=== PATIENT | female | born 1960 | race Caucasian/White ===

== ENCOUNTER 2025-04-21 00:31 | Inpatient (IN) | payer MEDICAID, OTHER ==
[~2025-04-21] VITALS: Ht 172.7 cm; Wt 79.7 kg
--- NOTE | 2025-04-21 01:16 | ED.PDOC ---
GI ASSESSMENT HPI Comments 64 year old female came to ER due to rectal pain. Patient has been having episodes of rectal prolapse since 2004. No surgical intervention has ever been done. Patient has been able to reduce the prolapse with relative ease before until 3 days ago, she had another episode of rectal prolapse however it is irreducible at this time. Patient went to [facility] for help however despite several attempts by the ER doctor, the prolapse remained irreducible. REVIEW OF SYSTEMS: General: No fever, no chills, or fatigue HEENT: No sore throat, no earache, no congestion, no neck pain. Cardiac: No chest pain. No palpitations. Lungs: No shortness of breath, no cough. GI: No nausea, no vomiting, no diarrhea, no constipation, no abdominal pain, (+) rectal pain : No dysuria, frequency, or urgency. No hematuria. Musculoskeletal: No joint pain , no joint swelling, no extremity edema. Skin: No rash, no itching. Neuro: No headache, no dizziness, no weakness PHYSICAL EXAM: General: Awake, alert and oriented. No acute distress. Skin: Skin in warm, dry and intact without rashes or lesions. HEENT: The head is normocephalic and atraumatic. Conjunctivae are clear without exudates or hemorrhage. Sclera is non-icteric. Neck: Normal range of motion. No JVD. Cardiac: Regular rate Respiratory: No signs of respiratory distress. No Stridor. : Large erythematous rectal prolapse, tender to palpation, nonreducible Neurological: The patient is awake, alert and oriented to person, place, and time with normal speech. Speech is clear. There is no facial asymmetry. Psychiatric: Appropriate mood and affect. Good judgement and insight. Chief Complaint: Abdominal Pain Time Seen by MD: 01:15 Reviewed Notes: Nurses Notes Allergies: Coded Allergies: NO KNOWN ALLERGIES (Unverified , 04/21/25) Information Source: Patient Mode of Arrival: EMS Past Medical History PAST MEDICAL HISTORY: Anemia Surgical History: Denies all surgeries CMM TECHNICIAN History: Denies all CMM TECHNICIAN Hx Family History Family History: Reviewed,noncontributory to illness Social History Smoker: Non-Smoker Alcohol: Denies ETOH Use Drugs: Denies Drug Use Lives In: Home Was a procedure done? Was a procedure done?: No GI differential Dx Differential Diagnosis: Diverticular disease, Inflammatory BD, Ischemic Bowel, Anemia, Other (rectal prolapse) X-Ray, Labs, Meds, VS Vital Signs Date Time Temp Pulse Resp B/P (MAP) Pulse Ox O2 Delivery O2 Flow Rate FiO2 04/21/25 00:35 99.2 90 16 172/87 95 99.2 04/21/25 00:33 99.2 82 16 117/65 (82) 95 99.2 Time of 1ST Reevaluation: 01:16 Reevaluation 1ST: Unchanged Patient Education/Counseling: Need For Follow Up Family Education/Counseling: No Family Present SEPSIS Sepsis Screen Date sepsis recognized/suspect: Apr 21, 2025 Time Sepsis recognized/suspect: 0035 Recent Procedure: No On Antibiotic Therapy: No Respiratory Rate >20: No Heart Rate >90: No Temp<36 C (96.8 F) or >38.3 C: No SBP <90 or MAP <65 mmHG: No New Acute Mental Status Change: No Is the patient on CPAP, BIPAP,: No Vital Signs Date Time Temp Pulse Resp B/P (MAP) Pulse Ox O2 Delivery O2 Flow Rate FiO2 04/21/25 00:35 99.2 90 16 172/87 95 99.2 04/21/25 00:33 99.2 82 16 117/65 (82) 95 99.2 Departure 1 Departure Time of Disposition: 01:52 Impression: Primary Impression: Rectal prolapse Disposition: ADMITTED INPATIENT Condition: Stable Critical Care Note Critical Care Time?: No Stability Stability form required: No I personally scribed for DEVEN NEAL MD ([email or web address]) on 04/21/25 at 01:16. Electronically submitted by Giovani Smith ([email or web address]). DEVEN NEAL MD Apr 21, 2025 01:16
[2025-04-21 02:30] LABS: Hematocrit 31.3 % (36.0-46.0); Hemoglobin 10.6 g/dL (12.2-16.2); Mean Corpuscular Hemoglobin 28.7 pg (28.0-32.0); Mean Corpuscular Volume 85.0 fL (80.0-100.0); Nucleated Red Blood Cells % 0.1 %
[2025-04-21 02:35] LABS: Chloride 100 mmol/L (98-107); Potassium 4.5 mmol/L (3.5-5.1)
[2025-04-21 02:36] LABS: Anion Gap 8 (5-15); Carbon Dioxide 23 mmol/L (20-31)
[2025-04-21 02:37] LABS: Calcium 9.8 mg/dL (8.7-10.4)
[2025-04-21 02:41] LABS: BUN/Creatinine Ratio 13.5 (10.0-20.0); Blood Urea Nitrogen 14 mg/dL (9-23); Glucose 90 mg/dL (74-106)
[2025-04-21 02:43] LABS: Sodium 131 mmol/L (136-145)
[2025-04-21] MEDS ORDERED: ONDANSETRON HCL 4 MG/2 ML VIAL IV PRN (03:15)
[2025-04-21] MEDS: SODIUM CHLORIDE 0.9% 1,000 ML IV ONE (03:15)
[2025-04-21 03:57] LABS: Alanine Aminotransferase 14.0 U/L (7-40); Bilirubin, Direct 0.3 mg/dL (<0.3)
[2025-04-21 03:58] LABS: Bilirubin, Total 0.5 mg/dL (0.2-1.0)
[2025-04-21 04:00] LABS: Albumin 3.0 g/dL (3.2-4.8); Alkaline Phosphatase 131.0 U/L (46-116); Total Protein 5.6 g/dL (5.7-8.2)
[2025-04-21] MEDS: HYDROmorphone HCL 2 MG/ML VL/or syr IV ONE (04:02)
[2025-04-21] MEDS: PANTOPRAZOLE 40 MG/10 ML VIAL INJ IV ONE (04:08)
--- NOTE | 2025-04-21 04:17 | DVH ---
CHEST RADIOGRAPH Indication: sob Technique: Single frontal view of the chest was obtained COMPARISON: CHEST TWO VIEWS on DOS: 09/05/19 FINDINGS: Lines and Tubes: None Lungs: Clear. Soft tissue density shadow and breast prosthesis overlies the right middle lung zone. Pleura: No effusion. No pneumothorax. Cardiomediastinal contours: Unremarkable Bones: Unremarkable IMPRESSION: 1. No radiographic evidence of acute cardiopulmonary abnormality.
--- NOTE | 2025-04-21 04:26 | DVH ---
Exam: CT CT AB PEL WO CON-NO ORAL OR IV History: eval for obstruction Comparison Study: None Technique: Multidetector spiral CT of the abdomen and pelvis was performed from lung bases to pubic s ymphysis. Imaging was performed without intravenous contrast. Coronal and sagittal multiplanar reform ats were obtained from the axial data set by the technologist. Radiation Dose : 1. Abdomen/Pelvis: CTDIvol 11.17 mGy, DLP 717.4 mGy*cm. Findings: Evaluation of vasculature and solid organs is limited due to lack of intravenous contrast use. Lung Bases: Lung bases are clear. Visualized portions of the heart and pericardium are unremarkable. Liver: The liver is normal in size. No focal lesions. Gallbladder and Biliary Tree: The gallbladder is unremarkable No intrahepatic or extrahepatic biliar y ductal dilatation. Spleen: Unremarkable Pancreas: The pancreas is grossly unremarkable. Adrenal Glands: Unremarkable Kidneys: Kidneys are unremarkable without calculi or hydronephrosis. GI tract: The stomach is grossly normal in appearance. No evidence of small bowel wall thickening or abnormal dilatation to suggest bowel obstruction. There is marked distention of the colon with stool. For example the cecum measures 10.3 cm. Marked fecal retention in the rectum measuring 7.3 cm with m ucosal thickening of the rectum, pericolonic fluid and fat stranding. There is upstream dilatation of the entire colon. The appendix is not visualized. Peritoneum/mesentery/retroperitoneum. No evidence of free intraperitoneal air. No ascites. No evidenc e of suspicious lymphadenopathy. Abdominal Wall: Bilateral calcified breast implants with suspected rupture of the right implant. Vasculature: The visualized abdominal aorta is normal in size and caliber. Evaluation of abdominal a nd pelvic vessels is limited due to lack of intravenous contrast. Urinary Bladder: Grossly unremarkable for degree of distention. Pelvic Organs: Unremarkable Musculoskeletal: No aggressive focal bony lesions, acute fractures or dislocation. IMPRESSION: 1. Marked fecal retention with inflammatory changes in the rectum compatible with stercoral colitis w ith colonic obstruction. 2. Suspect possible right breast implant rupture. Correlation with dedicated breast imaging recommen ded if clinically warranted.
--- NOTE | 2025-04-21 04:29 | DVHHPRES ---
History of Present Illness Resident Creating Document: CORY JULIEN RESIDENT History of Present Illness This is a 64-year-old female with past medical history of rectal prolapse which she has been able to reduce for 20 years, fibromyalgia not on any medication, bipolar disorder stable since 2005, hysterectomy, breast augmentation, who came from [facility] on 04/20/25 with complaints of being unable to push back her rectal prolapse for 3 days, rectal bleeding since 3 days and constipation for 19 days. As per the patient, she went to [facility] 2 days ago via ambulance when she saw blood-tinged fluid from the prolapse site and she was unable to reduce the prolapse back in. In the hospital they attempted to reduce it twice in the past 2 days and she was only able to hold it for a while, but she was only able to hold it in for 30 minutes before it came out again. She says the bleeding increased after the doctors there tried to reduce the prolapse each time. She reports for the past 19 days she has taken various stool softeners and Fleet enema which has not helped passed gas or stool. She is able to tolerate a diet but eats less knowing it will cause her more abdominal pain which she has started to feel as she is unable to pass flatus or stool. Past medical history: As above Past surgical history: As above Social history: Patient denies smoking, drinks alcohol 1 to 2 times a year and smokes marijuana once a month for fibromyalgia family history: Reviewed and noncontributory to the management of this case Home medications: Seroquel 200 mg q.i.d., lamotrigine 200 mg b.i.d. Primary care physician: Dr. Bernard and [facility] allergies: None code status: Full code Review of Systems Constitutional: No: Fever, Chills, Sweats, Weakness, Malaise, Other Eyes: No: Pain, Vision change, Conjunctivae inflammation, Eyelid inflammation, Other, Redness ENT: No: Ear pain, Ear discharge, Nose pain, Nose discharge, Nose congestion, Mouth pain, Mouth swelling, Throat pain, Throat swelling, Other Respiratory: No: Cough, Dry, Shortness of breath, SOB with excertion, Wheezing, Hemoptysis, Pleuritic Pain, Sputum, Wheezing, Other Cardiovascular: No: Chest Pain, Palpitations, Orthopnea, Paroxysmal Noc. Dyspnea, Edema, Lt Headedness, Other Gastrointestinal: Abdominal Pain; No: Nausea, Vomiting, Diarrhea, Constipation, Melena, Hematochezia, Other Genitourinary: Other (Rectal prolapse) Musculoskeletal: No: other, neck pain, shoulder pain, arm pain, back pain, hand pain, leg pain, foot pain Skin: No: Rash, Lesions, Jaundice, Bruising, Other Neurological: No: Weakness, Numbness, Incoordination, Change in speech, Confusion, Seizures, Other Allergies: Coded Allergies: NO KNOWN ALLERGIES (Unverified , 04/21/25) Medications Current Medications Medications Dose Ordered Sig/Sharri Route Start Time Stop Time Status Last Admin Dose Admin Ondansetron HCl 4 mg Q4HP PRN IV 04/21/25 03:15 Quetiapine Fumarate 200 mg Q8HR PO 04/21/25 06:00 Lamotrigine 200 mg Q12HR PO 04/21/25 10:00 Pantoprazole Sodium 40 mg DAILY IV 04/22/25 10:00 Hydromorphone HCl 0.5 mg Q4HPRN PRN IV 04/21/25 03:15 Exam Vital Signs Vital Signs Date Time Temp Pulse Resp B/P (MAP) Pulse Ox O2 Delivery O2 Flow Rate FiO2 04/21/25 04:02 87 20 141/91 04/21/25 00:35 99.2 95 99.2 04/21/25 00:33 Room Air* 0 21 Exam General Appearance: Alert, Oriented X3, Cooperative, Not in acute distress HEENT: Atraumatic, Mucous membranes moist/pink Respiratory: Clear to auscultation, Normal air movement, No added sounds Cardiovascular: Regular rate, Normal S1, Normal S2, No murmurs Abdominal: Active bowel sounds, Soft, no distention, no tenderness Extremities: No edema, Normal pulses, No tenderness/swelling Skin: No Significant rash, except past surgical scars Neuro: Normal speech, sensorimotor deficits none Psych/Mental Status: Mental status NL, Mood NL Rectal: Presence of red, intestinal looking mass the size of a golf ball, dripping blood, extremely tender on touch Patient is in severe pain, LEAH refused, disimpaction not possible, patient does not want rectal enema either, awaiting surgeon Nurse was there as it communications specialist during examination Labs/Xrays Labs Test 04/21/25 02:14 Range/Units White Blood Count 7.8 4.4-10.8 10^3/uL Red Blood Count 3.68 L 4.0-5.20 10^6/uL Hemoglobin 10.6 L 12.2-16.2 g/dL Hematocrit 31.3 L 36.0-46.0 % Mean Corpuscular Volume 85.0 80.0-100.0 fL Mean Corpuscular Hemoglobin 28.7 28.0-32.0 pg Mean Corpuscular Hemoglobin Concent 33.7 32.0-36.0 g/dL Red Cell Distribution Width 14.2 11.8-14.3 % Platelet Count 407 140-450 10^3/uL Mean Platelet Volume 6.7 L 6.9-10.8 fL Neutrophils (%) (Auto) 78.2 37.0-80.0 % Lymphocytes (%) (Auto) 10.9 10.0-50.0 % Monocytes (%) (Auto) 10.8 0.0-12.0 % Eosinophils (%) (Auto) 0.0 0.0-7.0 % Basophils (%) (Auto) 0.1 0.0-2.0 % Neutrophils # (Auto) 6.1 1.6-8.6 10 ^3/uL Lymphocytes # (Auto) 0.9 0.4-5.4 10 ^3/uL Monocytes # (Auto) 0.8 0-1.3 10 ^3/uL Eosinophils # (Auto) 0 0-0.8 10 ^3/uL Basophils # (Auto) 0 0-0.2 10 ^3/uL Nucleated Red Blood Cells 0.1 % Sodium Level 131 L 136-145 mmol/L Potassium Level 4.5 3.5-5.1 mmol/L Chloride Level 100 98-107 mmol/L Carbon Dioxide Level 23 20-31 mmol/L Anion Gap 8 5-15 Blood Urea Nitrogen 14 9-23 mg/dL Creatinine 1.04 H 0.550-1.02 mg/dL Glomerular Filtration Rate Calc 61 >90 mL/min BUN/Creatinine Ratio 13.5 10.0-20.0 Serum Glucose 90 74-106 mg/dL Calcium Level 9.8 8.7-10.4 mg/dL Total Bilirubin 0.5 0.2-1.0 mg/dL Direct Bilirubin 0.3 <0.3 mg/dL Aspartate Amino Transferase (AST) 20 13-40 U/L Alanine Aminotransferase (ALT) 14 7-40 U/L Alkaline Phosphatase 131 H 46-116 U/L Total Protein 5.6 L 5.7-8.2 g/dL Albumin 3.0 L 3.2-4.8 g/dL SEPSIS Sepsis Screen Date sepsis recognized/suspect: Apr 21, 2025 Time Sepsis recognized/suspect: 34 Recent Procedure: No On Antibiotic Therapy: No Respiratory Rate >20: No Heart Rate >90: No Temp<36 C (96.8 F) or >38.3 C: No SBP <90 or MAP <65 mmHG: No New Acute Mental Status Change: No Is the patient on CPAP, BIPAP,: No Physician Orders * Surgical Consult (04/21/25 ) Admit (04/21/25 03:01) Code Status (04/21/25 03:01) Ondansetron Hcl (Zofran) (04/21/25 03:15) Complete Blood Count (04/21/25 04:00) Comprehensive Metabolic Panel (04/21/25 04:00) Npo (Nothing By Mouth) Diet (04/21/25 Breakfast) Condition: Unstable (04/21/25 03:01) Notify Md Of Changes From Base (04/21/25 03:01) Quetiapine Fumarate Tablet (Seroquel Tab (04/21/25 06:00) Lamotrigine Tablet (Lamictal Tablet) (04/21/25 10:00) Type And Screen (04/21/25 03:01) Hydromorphone Injection (Dilaudid Inject (04/21/25 03:15) Ct Ab Pel Wo Con-No Oral Or Iv (04/21/25 03:01) Sodium Chloride 0.9% (04/21/25 03:15) Chest Xray 1 View (04/21/25 03:01) Pantoprazole (Protonix) (04/22/25 10:00) PTPTT (04/21/25 04:04) Iron Panel (04/21/25 04:04) Ferritin (04/21/25 04:04) Vitamin B12 (04/21/25 04:04) Folate (Folic Acid) (04/21/25 04:04) Vital Signs Date Time Temp Pulse Resp B/P (MAP) Pulse Ox O2 Delivery O2 Flow Rate FiO2 04/21/25 04:02 87 20 141/91 04/21/25 00:35 99.2 90 16 172/87 95 99.2 04/21/25 00:33 99.2 82 16 117/65 (82) 95 99.2 04/21/25 00:33 Room Air* 0 21 Laboratory Tests Test 04/21/25 02:14 White Blood Count 7.8 10^3/uL (4.4-10.8) Medications Medications Dose Ordered Sig/Sharri Route Start Time Stop Time Status Last Admin Dose Admin Hydromorphone HCl 0.5 mg ONCE ONCE IV 04/21/25 03:15 04/21/25 03:19 DC 04/21/25 04:02 0.5 MG Pantoprazole Sodium 40 mg ONCE ONCE IV 04/21/25 03:15 04/21/25 03:19 DC 04/21/25 04:08 40 MG Sodium Chloride 1,000 ml @ 100 mls/hr Q10H ONCE IV 04/21/25 03:15 04/21/25 13:14 04/21/25 03:15 100 MLS/HR Assessment/Plan Assessment/Plan #Rectal prolapse #hematochezia due to above #normocytic normochromic anemia # stercoral colitis with colonic obstruction -Surgery consult placed -Ondansetron 4 mg IV q.4 PRN -NPO -Hydromorphone 0.5 mg IV once And q.4 PRN -IV fluids in his 0.9% -pantoprazole 40 mg IV daily scheduled - PT 11.8, INR 1.13, APTT 40.4 - B12 547, folic acid 8.2 2 -Iron 15, TIBC 186, percent saturation 8.1 -Iron sucrose complex IV daily for 5 days -CT abdomen and pelvis without contrast , shows Marked fecal retention with inflammatory changes in the rectum compatible with stercoral colitis with colonic obstruction. -lactulose 30 mL p.o. once #Bipolar disorder, stable -UTI pt 200 mg p.o. Q 8 scheduled -Lamotrigine 200 mg p.o. q.12 scheduled #history of fibromyalgia -Pain management as above -outpatient follow up #Suspect possible right breast implant rupture -as seen in CT abdomen and pelvis, incidental finding -outpatient follow up GI prophylaxis: Protonix 40 mg IV daily scheduled DVT prophylaxis: held due to bleeding Diet: NPO Goals of care discussed with the patient for more than 27 minutes: Full code status Case discussed with Dr. Martins, patient and nurse. Plan discussed with: Patient My Orders Orders - CORY JULIEN Procedure Category Date Status Time Admit ADMIT 04/21/25 Transmitted 03:01 Code Status CODE 04/21/25 Transmitted 03:01 Ondansetron Hcl PHA 04/21/25 In Process (Zofran) 03:15 Complete Blood Count LAB 04/21/25 Logged 04:00 Comprehensive LAB 04/21/25 Logged Metabolic Panel 04:00 Npo (Nothing By DIET 04/21/25 Transmitted Mouth) Diet Breakfast Condition: Unstable AJIT 04/21/25 In Process 03:01 Notify Of Changes AJIT 04/21/25 In Process From Base 03:01 Quetiapine Fumarate PHA 04/21/25 In Process Tablet (Seroquel Tab 06:00 Lamotrigine Tablet PHA 04/21/25 In Process (Lamictal Tablet) 10:00 Type And Screen BBK 04/21/25 In Process 03:01 Hydromorphone PHA 04/21/25 In Process Injection (Dilaudid 03:15 Ct Ab Pel Wo Con-No CT 04/21/25 Resulted Oral Or Iv 03:01 Sodium Chloride 0.9% PHA 04/21/25 In Process 03:15 Chest Xray 1 View XY 04/21/25 Resulted 03:01 Pantoprazole PHA 04/22/25 In Process (Protonix) 10:00 PTPTT LAB 04/21/25 In Process 04:04 Iron Panel LAB 04/21/25 In Process 04:04 Ferritin LAB 04/21/25 In Process 04:04 Vitamin B12 LAB 04/21/25 In Process 04:04 Folate (Folic Acid) LAB 04/21/25 In Process 04:04 Date of Service: Apr 21, 2025 Billing Provider: RIMA MARTINS MD Common Visit Codes: [id number] INP/OBS CARE (HIGH) CORY JULIEN RESIDENT Apr 21, 2025 04:29 RIMA MARTINS MD Apr 26, 2025 11:56
[2025-04-21 04:35] LABS: INR 1.13 (0.9-1.15); Partial Thromboplastin Time 40.4 SEC (24.5-34.5); Prothrombin Time 11.8 sec (9.3-11.8)
[2025-04-21 04:51] LABS: Iron 15.0 ug/dL (50-170); Total Iron Binding Capacity 186.0 ug/dL (250-425)
[2025-04-21 05:04] LABS: Ferritin 183.2 ng/mL (10-291)
[2025-04-21] MEDS: LACTULOSE 20Gm/30ML SOLN PO ONE (06:00)
[2025-04-21 08:00] VITALS: PULSE 91; RESP 15; O2SAT 98
[2025-04-21 08:49] LABS: Hemoglobin 11.2 g/dL (12.2-16.2); Mean Corpuscular Hemoglobin 28.9 pg (28.0-32.0); Nucleated Red Blood Cells % 0.0 %
[2025-04-21 08:51] LABS: Hematocrit 33.3 % (36.0-46.0); Mean Corpuscular Volume 85.7 fL (80.0-100.0)
[2025-04-21 08:56] LABS: Chloride 98 mmol/L (98-107); Potassium 4.6 mmol/L (3.5-5.1)
[2025-04-21 08:57] LABS: Anion Gap 9 (5-15); Calcium 10.1 mg/dL (8.7-10.4); Carbon Dioxide 25 mmol/L (20-31)
[2025-04-21 08:59] LABS: Sodium 132 mmol/L (136-145)
[2025-04-21 09:02] LABS: BUN/Creatinine Ratio 11.8 (10.0-20.0); Blood Urea Nitrogen 13 mg/dL (9-23); Glucose 92 mg/dL (74-106)
[2025-04-21 09:03] LABS: Magnesium 1.9 mg/dL (1.6-2.6)
--- NOTE | 2025-04-21 09:42 | DVHINCON2 ---
Date of service: Apr 21, 2025 History of Present Illness 64-year-old female with a long history of rectal prolapse for the past 20 years who has been unable to reduce it for the past three days and also causing c onstipation. Patient also reports some bleeding from the area. Past Medical History Fibromyalgia. Bipolar disorder. Past Surgical History Breast augmentation. Hysterectomy. Family History Noncontributory Social History Rare alcohol. Denies tobacco. Marijuana once a month for fibromyalgia. Allergies: Coded Allergies: NO KNOWN ALLERGIES (Unverified , 04/21/25) Current Medications Current Medications Medications (Trade) Dose Ordered Sig/Sharri Route PRN Reason Start Time Stop Time Status Last Admin Ondansetron HCl (Zofran) 4 mg Q4HP PRN IV NAUSEA / VOMITING 04/21/25 03:15 Quetiapine Fumarate (SEROquel TABLET) 200 mg Q8HR PO 04/21/25 06:00 Lamotrigine (LaMICtal TABLET) 200 mg Q12HR PO 04/21/25 10:00 Pantoprazole Sodium (Protonix) 40 mg DAILY IV 04/22/25 10:00 Hydromorphone HCl (Dilaudid Injection) 0.5 mg Q4HPRN PRN IV MODERATE PAIN (4-6 PAIN SCALE) 04/21/25 03:15 Iron Sucrose 110 ml @ 110 mls/hr DAILY@1200 IV 04/21/25 12:00 04/25/25 12:59 Vital Signs Vital Signs Date Time Temp Pulse Resp B/P (MAP) Pulse Ox O2 Delivery O2 Flow Rate FiO2 04/21/25 06:00 90 18 126/79 (95) 96 04/21/25 00:35 99.2 99.2 04/21/25 00:33 Room Air* 0 21 Physical Exam GEN: Age-appropriate female in no acute distress. Alert. HEENT: Normocephalic atraumatic. Moist mucous membranes. Anicteric sclerae. CV: RRR Respiratory: CTAB ABD: Soft. Minimal distention. Rectal: Prolapsed rectum size of an large orange with inflamed mucosa and significant edema. No active bleeding. Unable to be reduced. Labs/Diagnostic Data Labs Test 04/21/25 08:27 04/21/25 02:14 Range/Units White Blood Count 8.6 4.4-10.8 10^3/uL Red Blood Count 3.89 L 4.0-5.20 10^6/uL Hemoglobin 11.2 L 12.2-16.2 g/dL Hematocrit 33.3 L 36.0-46.0 % Mean Corpuscular Volume 85.7 80.0-100.0 fL Mean Corpuscular Hemoglobin 28.9 28.0-32.0 pg Mean Corpuscular Hemoglobin Concent 33.7 32.0-36.0 g/dL Red Cell Distribution Width 14.2 11.8-14.3 % Platelet Count 453 H 140-450 10^3/uL Mean Platelet Volume 6.9 6.9-10.8 fL Neutrophils (%) (Auto) 81.5 H 37.0-80.0 % Lymphocytes (%) (Auto) 8.3 L 10.0-50.0 % Monocytes (%) (Auto) 10.1 0.0-12.0 % Eosinophils (%) (Auto) 0.0 0.0-7.0 % Basophils (%) (Auto) 0.1 0.0-2.0 % Neutrophils # (Auto) 7.0 1.6-8.6 10 ^3/uL Lymphocytes # (Auto) 0.7 0.4-5.4 10 ^3/uL Monocytes # (Auto) 0.9 0-1.3 10 ^3/uL Eosinophils # (Auto) 0 0-0.8 10 ^3/uL Basophils # (Auto) 0 0-0.2 10 ^3/uL Nucleated Red Blood Cells 0.0 % Sodium Level 132 L 136-145 mmol/L Potassium Level 4.6 3.5-5.1 mmol/L Chloride Level 98 98-107 mmol/L Carbon Dioxide Level 25 20-31 mmol/L Anion Gap 9 5-15 Blood Urea Nitrogen 13 9-23 mg/dL Creatinine 1.10 H 0.550-1.02 mg/dL Glomerular Filtration Rate Calc 57 >90 mL/min BUN/Creatinine Ratio 11.8 10.0-20.0 Serum Glucose 92 74-106 mg/dL Calcium Level 10.1 8.7-10.4 mg/dL Magnesium Level 1.9 1.6-2.6 mg/dL Prothrombin Time 11.8 9.3-11.8 sec Prothrombin Time INR 1.13 0.9-1.15 Activated Partial Thromboplast Time 40.4 H 24.5-34.5 SEC Iron Level 15 L 50-170 ug/dL Total Iron Binding Capacity 186 L 250-425 ug/dL Percent Iron Saturation 8.1 L 15-50 % Ferritin 183.2 10-291 ng/mL Total Bilirubin 0.5 0.2-1.0 mg/dL Direct Bilirubin 0.3 <0.3 mg/dL Aspartate Amino Transferase (AST) 20 13-40 U/L Alanine Aminotransferase (ALT) 14 7-40 U/L Alkaline Phosphatase 131 H 46-116 U/L Total Protein 5.6 L 5.7-8.2 g/dL Albumin 3.0 L 3.2-4.8 g/dL Vitamin B12 Level 547 211-911 pg/mL Folic Acid 8.22 >5.38 ng/mL Assessment 1. Rectal prolapse Plan/Recommendation 1. Perineal rectosigmoidectomy. Informed consent: The surgery and its risks including but not limited to infection, bleeding requiring possible blood transfusion with the risk of hepatitis or HIV infection, possible recurrent prolapse, possible anal stricture requiring possible future dilation, possible perioperative NC or stroke were explained to the patient. All questions were answered to her satisfaction. She expressed verbal understanding and wished to proceed with the surgery. Plan discussed with: Patient SCAR LANDA MD Apr 21, 2025 09:42
[2025-04-21] MEDS: lamoTRIgine 100 MG TAB PO SCH (10:59)
[2025-04-21] MEDS: SODIUM CHLORIDE 0.9% 1,000 ML IV SCH (11:46)
[2025-04-21] MEDS ORDERED: IRON SUCROSE COMPLEX 110 ML IV SCH (12:00)
--- NOTE | 2025-04-21 14:56 | DVHPNRES ---
Progress Note Date Seen: Apr 21, 2025 Resident Creating Document: SANDRA HUNTER RESIDENT Medical Necessity Reason Pt with a Central, PICC or Fol: Yes The following are medically ne: Ng Catheter Subjective Review of Systems Brief history on admission: This is a 64-year-old female with past medical history of rectal prolapse which she has been able to reduce for 20 years, fibromyalgia not on any medication, bipolar disorder stable since 2005, hysterectomy, breast augmentation, who came from [facility] on 04/20/25 with complaints of being unable to push back her rectal prolapse for 3 days, rectal bleeding since 3 days and constipation for 19 days. As per the patient, she went to [facility] 2 days ago via ambulance when she saw blood-tinged fluid from the prolapse site and she was unable to reduce the prolapse back in. In the hospital they attempted to reduce it twice in the past 2 days and she was only able to hold it for a while, but she was only able to hold it in for 30 minutes before it came out again. She says the bleeding increased after the doctors there tried to reduce the prolapse each time. She reports for the past 19 days she has taken various stool softeners and Fleet enema which has not helped passed gas or stool. She is able to tolerate a diet but eats less knowing it will cause her more abdominal pain which she has started to feel as she is unable to pass flatus or stool. Past medical history: As above Past surgical history: As above Social history: Patient denies smoking, drinks alcohol 1 to 2 times a year and smokes marijuana once a month for fibromyalgia family history: Reviewed and noncontributory to the management of this case Home medications: Seroquel 200 mg q.i.d., lamotrigine 200 mg b.i.d. Allergies: None code status: Full code ROS: Constitutional: Denies weight loss, fever and chills. HEENT: Denies changes in vision and hearing. Respiratory: Denies shortness of breath and cough Cardiovascular: Denies chest discomfort or palpitations GI: Constipation, rectal bleeding, rectal prolapse : Denies dysuria and urinary frequency. Musculoskeletal: Denies myalgias and joint pain Skin: Denies rash and pruritus. Neurological: Denies dizziness, headache, vision or hearing problems 04/21/2025: Patient was examined at bedside today. Patient continues to complain of pain in rectal area and abdomen. Surgery on board. Objective vital signs Vital Sign Date Time Temp Pulse Resp B/P (MAP) Pulse Ox O2 Delivery O2 Flow Rate FiO2 04/21/25 12:00 98.9 86 17 122/71 (88) 97 98.9 04/21/25 08:00 Room Air* 0 21 medications Current Medications Medications Dose Ordered Sig/Sharri Route Start Time Stop Time Status Last Admin Dose Admin Ondansetron HCl 4 mg Q4HP PRN IV 04/21/25 03:15 Quetiapine Fumarate 200 mg Q8HR PO 04/21/25 06:00 04/21/25 14:11 200 MG Lamotrigine 200 mg Q12HR PO 04/21/25 10:00 04/21/25 10:59 200 MG Pantoprazole Sodium 40 mg DAILY IV 04/22/25 10:00 Hydromorphone HCl 0.5 mg Q4HPRN PRN IV 04/21/25 03:15 Sodium Chloride 1,000 ml @ 100 mls/hr Q10H IV 04/21/25 11:30 04/21/25 11:46 100 MLS/HR Examination General: Patient alert and oriented in person, place and time. Patient following commands. HEENT: Normocephalic, atraumatic, moist mucous membranes Respiratory/pulmonary: Clear lungs bilaterally, vesicular murmurs present in almost all lung avila, no associated crackles or wheezes. Cardiovascular: Normal heart sounds S1 and S2 with no associated murmurs Abdomen: Distended tender abdomen, increased bowel sounds Extremities: There is no peripheral edema present at the lower extremities. Peripheral Pulses: 3+ Radial (R). 3+ Radial (L). 3+ Dorsalis pedis (R). 3+ Dorsalis pedis(L) Skin: No rashes or pruritus, there is no sacral edema present at this time. Neurological: Intact cranial nerves with no focal neurologic deficits Rectal exam: Red beefy non reducible mass, prolapsing from rectum with bloody discharge. Excruciating tenderness on palpation. laboratory and microbiology Laboratory Tests 04/21/25 08:27 Test 04/21/25 08:27 Range/Units Serum Glucose 92 74-106 mg/dL Problem List/Assessment/Plan Problem List/Assessment/Plan Rectal prolapse Hematochezia due to above Stercoral colitis with colonic obstruction Hyponatremia Obstipation Mild to moderate protein energy malnutrition Supportive management with hydromorphone, Zofran IV NS maintenance IV Protonix [address] abdomen and pelvis without contrast , shows Marked fecal retention with inflammatory changes in the rectum compatible with stercoral colitis with colonic obstruction. lactulose 30 mL p.o. once NPO. Surgery on board, perineal rectosigmoidectomy scheduled for tomorrow Normocytic normochromic anemia Reactive thrombocytosis Vitamin B12 547, folic acid 8.2 2 Iron 15, TIBC 186, percent saturation 8.1 Iron sucrose complex IV daily for 5 days Bipolar disorder, stable Quetiapine 200 mg p.o. Q 8 Lamotrigine 200 mg p.o. q.12 Fibromyalgia Supportive management with with therapy Right breast implant rupture Incidental finding Outpatient follow up DIET: NPO DVT PROPHYLAXIS: Lovenox GI PROPHYLAXIS: Held due to active rectal bleed CODE STATUS: Goals of care discussed with patient at bedside for more than 17 minutes. Full code DISPOSITION: Med/surge This medical document was created using an electronic medical record system with [employer] direct computerized dictation system. Although this document has been carefully reviewed, there may still be some phonetic and typographical errors. These areas are purely typographical due to imperfections of the software programs, and do not reflect any compromise in the patient's medical care. Patient's status and plan discussed with the patient. Case discussed with Dr. Osorio Plan discussed with: Patient, Other (Nurses) My Orders My Orders Orders - SANDRA HUNTER Procedure Category Date Status Time Sodium Chloride 0.9% PHA 04/21/25 In Process 11:30 Date of Service: Apr 21, 2025 Billing Provider: VALENTIN OSORIO MD Common Visit Codes: [id number] INP/OBS CARE(HIGH) SANDRA HUNTER RESIDENT Apr 21, 2025 14:56 VALENTIN OSORIO MD Apr 30, 2025 18:21
[2025-04-21] MEDS ORDERED: DEXTROSE (50%) 50ML SYRG IV PRN (16:45)
[2025-04-21] MEDS ORDERED: INSULIN LANTUS (GLARGINE) 1 /0.01ml (100units/ml) SC SCH (16:45)
[2025-04-21 17:35] VITALS: BP 145/100; PULSE 90; RESP 14; TEMP 98.5; O2SAT 96; O2SAT 98
[2025-04-21 17:40] VITALS: BP 145/100; PULSE 90; RESP 18; TEMP 98.5; O2SAT 98
[2025-04-21] MEDS: HYDROmorphone HCL 2 MG/ML VL/or syr IV PRN (18:30)
[2025-04-21 20:00] VITALS: PULSE 87; RESP 16; O2SAT 96
[2025-04-21] MEDS ORDERED: InsuLIN REG 1unit/0.01ml Soln (100units/ml) SC SCH (20:00)
[2025-04-21] MEDS ORDERED: ACCU-CHEK COMFORT CURVE STRIP VI SCH (20:00)
[2025-04-21 21:00] VITALS: BP 143/91; PULSE 87; RESP 16; TEMP 98.8; O2SAT 96
[2025-04-22] VITALS (8 sets, daily range): BP systolic 101–141; BP diastolic 67–89; PULSE 80–95; RESP 10–19; TEMP 97.5–99.6; O2SAT 94–98
[2025-04-22 07:57] LABS: Hematocrit 35.2 % (36.0-46.0); Hemoglobin 12.1 g/dL (12.2-16.2); Mean Corpuscular Hemoglobin 29.4 pg (28.0-32.0); Mean Corpuscular Volume 85.7 fL (80.0-100.0); Nucleated Red Blood Cells % 0.0 %
[2025-04-22 08:19] LABS: Calcium 10.0 mg/dL (8.7-10.4); Chloride 102 mmol/L (98-107); Potassium 4.0 mmol/L (3.5-5.1); Sodium 136 mmol/L (136-145)
[2025-04-22 08:20] LABS: Anion Gap 13 (5-15); Carbon Dioxide 21 mmol/L (20-31)
[2025-04-22 08:25] LABS: BUN/Creatinine Ratio 8.4 (10.0-20.0)
[2025-04-22 08:29] LABS: Blood Urea Nitrogen 9 mg/dL (9-23); Glucose 71 mg/dL (74-106)
[2025-04-22] MEDS ORDERED: ONDANSETRON HCL 4 MG/2 ML VIAL IV PRN (09:00)
[2025-04-22] MEDS ORDERED: METOCLOPRAMIDE HCL 5MG/ml INJ 2ml VIAL IV PRN (09:00)
[2025-04-22] MEDS ORDERED: HYDROmorphone HCL 2 MG/ML VL/or syr IV PRN (09:00)
[2025-04-22] MEDS ORDERED: hydrALAZINE HCL 20 MG/ML VL IV PRN (09:00)
[2025-04-22] MEDS ORDERED: MIDAZOLAM HCL 2MG/2ML 2ml VIAL (1mg/ml) ONE (09:03)
[2025-04-22] MEDS ORDERED: fentaNYL CITRATE 100 MCG/2 ML VL ONE (09:03)
[2025-04-22] MEDS ORDERED: METOCLOPRAMIDE HCL 5MG/ml INJ 2ml VIAL ONE (09:04)
[2025-04-22] MEDS ORDERED: LIDOCAINE 2% (LOCAL ANESTH.) PF 5ml SDV ONE (09:04)
[2025-04-22] MEDS ORDERED: ONDANSETRON HCL 4 MG/2 ML VIAL ONE (09:04)
[2025-04-22] MEDS ORDERED: PROPOFOL 10 MG/ML 20 ML IV ONE (09:05)
[2025-04-22] MEDS ORDERED: ceFAZolin 1GM VL ONE (09:50)
[2025-04-22] MEDS ORDERED: SODIUM CHLORIDE LOCK 10 ML ONE (09:56)
[2025-04-22] MEDS ORDERED: HYDROmorphone HCL 2 MG/ML VL/or syr ONE (09:59)
[2025-04-22] MEDS: PANTOPRAZOLE 40 MG/10 ML VIAL INJ IV SCH (10:00)
[2025-04-22] MEDS: ceFAZolin 1GM/50ML 50 ML IV ONE (10:00)
[2025-04-22] MEDS ORDERED: PHENYLEPHRINE HCL 10 MG/ML VL ONE (10:23)
[2025-04-22] MEDS: BUPIVACAINE W/ EPINEPH 0.5% INJ 50ML MDV IJ ONE (10:40)
[2025-04-22] MEDS ORDERED: LIDOCAINE 2% JELLY 11ml (GLYDO) ONE ×2 (10:47→10:48)
[2025-04-22] MEDS ORDERED: ACETAMINOPHEN IV 1000 MG/100ML (10MG/ML) IV ONE (11:15)
--- NOTE | 2025-04-22 11:32 | DVHOP2 ---
Operative Report - 2 Report Details Date: 04/22/25 Preop Diagnosis: 1. Rectal prolapse Postop Diagnosis: 1. Same Surgeon: Scar Sher MD Manager Marketing Communication: None Anesthesiologist: Gerry Zhu CRNA Anesthesia: Local Drains: None Consent: The surgery and its risks including but not limited to infection, bleeding requiring possible blood transfusion with the risk of hepatitis or HIV infection, possible perioperative ID or stroke, possible anal or rectal stricture requiring further intervention in the future such as dilation were explained to the patient. All questions were answered to her satisfaction. She expressed verbal understanding and wished to proceed with the surgery. Complications: None Estimated Blood Loss: 50 mL Fluids: 1 L Name of Procedure Performed Peroneal rectosigmoidectomy Procedure Details Procedure Details: After induction of general anesthesia, patient was placed in the high lithotomy position anal region was prepped and draped in standard surgical fashion. Approximately 25 mL of 0.5% Marcaine with epinephrine was used as a local anesthesia around the anal region incision was made proximally 2 cm away from the dentate line in the rectal mucosa and this was fully divided circumferentially. This released the the rectum from the anal region. During the dissection a small opening was made in the peritoneum. The peritoneum was then suture closed using 0 Vicryl sutures in locked fashion. The rectosigmoid colon was also divided proximally near the level of the anal verge. This was removed and sent off to pathology. Interrupted 2-0 Vicryl sutures were placed in interrupted fashion circumferentially to reapproximate the distal sigmoid wall to the distal mucosal wall in full-thickness fashion. There was ample opening without narrowing big enough to fit 3-0 my fingers in easily. There was no active bleeding at the site the mucosa appeared viable. A 28 [place] Malecot tube wrapped in 4 x 4 gauze dressing soaked in lidocaine jelly was then inserted into the anal canal for additional hemostasis. Surgical site was cleaned and dried. Sponge, needle, instrument count at the end of the case were reported to be correct by the nursing staff. The patient tolerated procedure well and was awake, extubated and transferred to recovery in stable condition. Specimen: Rectosigmoid colon Condition Stable Disposition Still a Patient SCAR SHER MD Apr 22, 2025 11:32
[2025-04-22] MEDS: LACTATED RINGER'S 1,000 ML IV SCH (12:05)
--- NOTE | 2025-04-22 14:44 | DVHPNRES ---
Progress Note Date Seen: Apr 22, 2025 Resident Creating Document: NELLY EDMOND RESIDENT Medical Necessity Reason Pt with a Central, PICC or Fol: Yes The following are medically ne: Ng Catheter Subjective Review of Systems Patient seen at bedside. Being prepared to transfer for surgery. This is a 64-year-old female with past medical history of rectal prolapse which she has been able to reduce for 20 years, fibromyalgia not on any medication, bipolar disorder stable since 2005, hysterectomy, breast augmentation, who came from [facility] on 04/20/25 with complaints of being unable to push back her rectal prolapse for 3 days, rectal bleeding since 3 days and constipation for 19 days. As per the patient, she went to [facility] 2 days ago via ambulance when she saw blood-tinged fluid from the prolapse site and she was unable to reduce the prolapse back in. In the hospital they attempted to reduce it twice in the past 2 days and she was only able to hold it for a while, but she was only able to hold it in for 30 minutes before it came out again. She says the bleeding increased after the doctors there tried to reduce the prolapse each time. She reports for the past 19 days she has taken various stool softeners and Fleet enema which has not helped passed gas or stool. She is able to tolerate a diet but eats less knowing it will cause her more abdominal pain which she has started to feel as she is unable to pass flatus or stool. Past medical history: As above Past surgical history: As above Social history: Patient denies smoking, drinks alcohol 1 to 2 times a year and smokes marijuana once a month for fibromyalgia family history: Reviewed and noncontributory to the management of this case Home medications: Seroquel 200 mg q.i.d., lamotrigine 200 mg b.i.d. Allergies: None code status: Full code ROS: Constitutional: Denies weight loss, fever and chills. HEENT: Denies changes in vision and hearing. Respiratory: Denies shortness of breath and cough Cardiovascular: Denies chest discomfort or palpitations GI: Constipation, rectal bleeding, rectal prolapse : Denies dysuria and urinary frequency. Musculoskeletal: Denies myalgias and joint pain Skin: Denies rash and pruritus. Neurological: Denies dizziness, headache, vision or hearing problems Objective vital signs Vital Sign Date Time Temp Pulse Resp B/P (MAP) Pulse Ox O2 Delivery O2 Flow Rate FiO2 04/22/25 13:00 97.5 95 17 141/89 (106) 96 97.5 04/22/25 10:57 Room Air 04/22/25 08:00 0 21 Total Intake and Output 04/21/25 04/21/25 04/22/25 15:00 23:00 07:00 Intake Total 0 ml Output Total 1900 ml 1000 ml Balance -1900 ml -1000 ml medications Current Medications Medications Dose Ordered Sig/Sharri Route Start Time Stop Time Status Last Admin Dose Admin Ondansetron HCl 4 mg Q4HP PRN IV 04/21/25 03:15 Quetiapine Fumarate 200 mg Q8HR PO 04/21/25 06:00 04/22/25 06:21 200 MG Lamotrigine 200 mg Q12HR PO 04/21/25 10:00 04/22/25 12:06 200 MG Pantoprazole Sodium 40 mg DAILY IV 04/22/25 10:00 04/22/25 12:56 40 MG Hydromorphone HCl 0.5 mg Q4HPRN PRN IV 04/21/25 03:15 04/22/25 12:55 0.5 MG Lactated Ringer's 1,000 ml @ 100 mls/hr Q10H IV 04/22/25 10:00 04/22/25 12:05 100 MLS/HR Piperacillin Sod/ Tazobactam Sod 100 ml @ 25 mls/hr Q8HR IV 04/22/25 14:00 Examination General: Patient alert and oriented in person, place and time. Patient following commands. HEENT: Normocephalic, atraumatic, moist mucous membranes Respiratory/pulmonary: Clear lungs bilaterally, vesicular murmurs present in almost all lung avila, no associated crackles or wheezes. Cardiovascular: Normal heart sounds S1 and S2 with no associated murmurs Abdomen: Distended tender abdomen, increased bowel sounds Extremities: There is no peripheral edema present at the lower extremities. Peripheral Pulses: 3+ Radial (R). 3+ Radial (L). 3+ Dorsalis pedis (R). 3+ Dorsalis pedis(L) Skin: No rashes or pruritus, there is no sacral edema present at this time. Neurological: Intact cranial nerves with no focal neurologic deficits Rectal exam: Red beefy non reducible mass, prolapsing from rectum with bloody discharge. Excruciating tenderness on palpation. laboratory and microbiology Laboratory Tests 04/22/25 06:35 Test 04/22/25 06:35 Range/Units Serum Glucose 71 L 74-106 mg/dL Problem List/Assessment/Plan Problem List/Assessment/Plan Assessment and plan Rectal prolapse Hematochezia due to above Stercoral colitis with colonic obstruction Hyponatremia Obstipation Mild to moderate protein energy malnutrition Supportive management with hydromorphone, Zofran IV NS maintenance IV Protonix [address] abdomen and pelvis without contrast , shows Marked fecal retention with inflammatory changes in the rectum compatible with stercoral colitis with colonic obstruction. lactulose 30 mL p.o. once NPO. Surgery on board, perineal rectosigmoidectomy scheduled for tomorrow Normocytic normochromic anemia Reactive thrombocytosis Vitamin B12 547, folic acid 8.2 2 Iron 15, TIBC 186, percent saturation 8.1 Iron sucrose complex IV daily for 5 days Bipolar disorder, stable Quetiapine 200 mg p.o. Q 8 Lamotrigine 200 mg p.o. q.12 Fibromyalgia Supportive management with with therapy Right breast implant rupture Incidental finding Outpatient follow up DIET: NPO DVT PROPHYLAXIS: Lovenox GI PROPHYLAXIS: Held due to active rectal bleed CODE STATUS: Goals of care discussed with patient at bedside for more than 17 minutes. Full code DISPOSITION: Med/surge Plan discussed with: Patient Date of Service: Apr 22, 2025 Billing Provider: VALENTIN REBOLLEDO MD Common Visit Codes: [id number] INP/OBS CARE(HIGH) NELLY EDMOND RESIDENT Apr 22, 2025 14:44 VALENTIN REBOLLEDO MD Apr 30, 2025 18:21
[2025-04-22] MEDS: PIPERACILLIN-TAZOB 3.375GM 100 ML IV SCH (14:49)
[2025-04-23] VITALS (8 sets, daily range): BP systolic 112–133; BP diastolic 68–89; PULSE 77–91; RESP 16–19; TEMP 97.8–99.9; O2SAT 94–97
[2025-04-23] MEDS: HYDROcodone-ACET 5/325MG TAB PO PRN (05:38)
[2025-04-23 06:39] LABS: Anion Gap 9 (5-15); Calcium 9.1 mg/dL (8.7-10.4); Carbon Dioxide 24 mmol/L (20-31); Chloride 100 mmol/L (98-107); Potassium 3.9 mmol/L (3.5-5.1)
[2025-04-23 06:41] LABS: Hematocrit 30.5 % (36.0-46.0); Hemoglobin 10.3 g/dL (12.2-16.2); Mean Corpuscular Hemoglobin 29.0 pg (28.0-32.0); Mean Corpuscular Volume 85.7 fL (80.0-100.0); Nucleated Red Blood Cells % 0.3 %
[2025-04-23 06:45] LABS: BUN/Creatinine Ratio 8.8 (10.0-20.0); Glucose 94 mg/dL (74-106)
[2025-04-23 06:49] LABS: Blood Urea Nitrogen 7 mg/dL (9-23); Sodium 133 mmol/L (136-145)
--- NOTE | 2025-04-23 12:04 | DVHPN2 ---
Progress Note - Dictate Date Seen: Apr 23, 2025 Medical Necessity Reason Pt with a Central, PICC or Fol: No The following are medically ne: Ng Catheter Subjective E: no major events o/n. c/o incisional pain but improving. vital signs Vital Sign Date Time Temp Pulse Resp B/P (MAP) Pulse Ox O2 Delivery O2 Flow Rate FiO2 04/23/25 09:00 97.8 79 16 125/81 (96) 94 97.8 04/23/25 08:07 Room Air* 0 21 Total Intake and Output 04/22/25 04/22/25 04/23/25 15:00 23:00 07:00 Intake Total 150 ml 680 ml 920 ml Output Total 0 ml 1001 ml 650 ml Balance 150 ml -321 ml 270 ml medications Current Medications Medications Dose Ordered Sig/Sharri Route Start Time Stop Time Status Last Admin Dose Admin Ondansetron HCl 4 mg Q4HP PRN IV 04/21/25 03:15 Quetiapine Fumarate 200 mg Q8HR PO 04/21/25 06:00 04/23/25 05:37 200 MG Lamotrigine 200 mg Q12HR PO 04/21/25 10:00 04/23/25 08:45 200 MG Pantoprazole Sodium 40 mg DAILY IV 04/22/25 10:00 04/23/25 08:45 40 MG Hydromorphone HCl 0.5 mg Q4HPRN PRN IV 04/21/25 03:15 04/23/25 02:20 0.5 MG Lactated Ringer's 1,000 ml @ 100 mls/hr Q10H IV 04/22/25 10:00 04/22/25 12:05 100 MLS/HR Piperacillin Sod/ Tazobactam Sod 100 ml @ 25 mls/hr Q8HR IV 04/22/25 14:00 04/23/25 05:37 25 MLS/HR Acetaminophen/ Hydrocodone Bitart 1 tab Q6HPRN PRN PO 04/23/25 00:15 04/23/25 11:46 1 TAB objective GEN: NAD RECTAL: surgical site healing well. laboratory and microbiology Laboratory Tests 04/23/25 05:29 Test 04/23/25 05:29 Range/Units Serum Glucose 94 74-106 mg/dL Assessment/Plan A: 1. s/p perineal rectosigmoidectomy for rectal prolapse POD #1 doing well. P: 1. stable from surgery POV for DC home. 2. wash surgical site (sitz bath) TID. 3. clear liquid diet. advance to soft diet in 1-2 days. 4. f/u in clinic on 05/01. call [phone] for f/u appt Plan discussed with: Patient SCAR LANDA MD Apr 23, 2025 12:04
--- NOTE | 2025-04-23 13:41 | DVHPNRES ---
Progress Note Date Seen: Apr 23, 2025 Resident Creating Document: SANDRA HUNTER RESIDENT Medical Necessity Reason Pt with a Central, PICC or Fol: No The following are medically ne: Ng Catheter Subjective Review of Systems This is a 64-year-old female with past medical history of rectal prolapse which she has been able to reduce for 20 years, fibromyalgia not on any medication, bipolar disorder stable since 2005, hysterectomy, breast augmentation, who came from [facility] on 04/20/25 with complaints of being unable to push back her rectal prolapse for 3 days, rectal bleeding since 3 days and constipation for 19 days. As per the patient, she went to [facility] 2 days ago via ambulance when she saw blood-tinged fluid from the prolapse site and she was unable to reduce the prolapse back in. In the hospital they attempted to reduce it twice in the past 2 days and she was only able to hold it for a while, but she was only able to hold it in for 30 minutes before it came out again. She says the bleeding increased after the doctors there tried to reduce the prolapse each time. She reports for the past 19 days she has taken various stool softeners and Fleet enema which has not helped passed gas or stool. She is able to tolerate a diet but eats less knowing it will cause her more abdominal pain which she has started to feel as she is unable to pass flatus or stool. Past medical history: As above Past surgical history: As above Social history: Patient denies smoking, drinks alcohol 1 to 2 times a year and smokes marijuana once a month for fibromyalgia family history: Reviewed and noncontributory to the management of this case Home medications: Seroquel 200 mg q.i.d., lamotrigine 200 mg b.i.d. Allergies: None code status: Full code ROS: Constitutional: Denies weight loss, fever and chills. HEENT: Denies changes in vision and hearing. Respiratory: Denies shortness of breath and cough Cardiovascular: Denies chest discomfort or palpitations GI: Constipation, rectal bleeding, rectal prolapse : Denies dysuria and urinary frequency. Musculoskeletal: Denies myalgias and joint pain Skin: Denies rash and pruritus. Neurological: Denies dizziness, headache, vision or hearing problems 04/23/2025: Patient was examined at bedside today. She is s/p perineal rectosigmoidectomy, no new complaints. Continue monitoring and managing. Objective vital signs Vital Sign Date Time Temp Pulse Resp B/P (MAP) Pulse Ox O2 Delivery O2 Flow Rate FiO2 04/23/25 12:38 99.3 82 18 119/76 (90) 95 99.3 04/23/25 08:07 Room Air* 0 21 Total Intake and Output 04/22/25 04/22/25 04/23/25 15:00 23:00 07:00 Intake Total 150 ml 680 ml 920 ml Output Total 0 ml 1001 ml 650 ml Balance 150 ml -321 ml 270 ml medications Current Medications Medications Dose Ordered Sig/Sharri Route Start Time Stop Time Status Last Admin Dose Admin Ondansetron HCl 4 mg Q4HP PRN IV 04/21/25 03:15 Quetiapine Fumarate 200 mg Q8HR PO 04/21/25 06:00 04/23/25 05:37 200 MG Lamotrigine 200 mg Q12HR PO 04/21/25 10:00 04/23/25 08:45 200 MG Pantoprazole Sodium 40 mg DAILY IV 04/22/25 10:00 04/23/25 08:45 40 MG Hydromorphone HCl 0.5 mg Q4HPRN PRN IV 04/21/25 03:15 04/23/25 02:20 0.5 MG Lactated Ringer's 1,000 ml @ 100 mls/hr Q10H IV 04/22/25 10:00 04/22/25 12:05 100 MLS/HR Piperacillin Sod/ Tazobactam Sod 100 ml @ 25 mls/hr Q8HR IV 04/22/25 14:00 04/23/25 05:37 25 MLS/HR Acetaminophen/ Hydrocodone Bitart 1 tab Q6HPRN PRN PO 04/23/25 00:15 04/23/25 11:46 1 TAB Examination General: Patient alert and oriented in person, place and time. Patient following commands. HEENT: Normocephalic, atraumatic, moist mucous membranes Respiratory/pulmonary: Clear lungs bilaterally, vesicular murmurs present in almost all lung avila, no associated crackles or wheezes. Cardiovascular: Normal heart sounds S1 and S2 with no associated murmurs Abdomen: Distended tender abdomen. Extremities: There is no peripheral edema present at the lower extremities. Peripheral Pulses: 3+ Radial (R). 3+ Radial (L). 3+ Dorsalis pedis (R). 3+ Dorsalis pedis(L) Skin: No rashes or pruritus, there is no sacral edema present at this time. Neurological: Intact cranial nerves with no focal neurologic deficits Rectal exam: Bruising in the perineal area, tender to palpation. No abnormal discharge seen. laboratory and microbiology Laboratory Tests 04/23/25 05:29 Test 04/23/25 05:29 Range/Units Serum Glucose 94 74-106 mg/dL Problem List/Assessment/Plan Problem List/Assessment/Plan Rectal prolapse s/p perineal rectosigmoidectomy Hematochezia due to above Stercoral colitis with colonic obstruction Hyponatremia Obstipation Mild to moderate protein energy malnutrition Supportive management with hydromorphone, Zofran IV NS maintenance IV Protonix [address] abdomen and pelvis without contrast , shows Marked fecal retention with inflammatory changes in the rectum compatible with stercoral colitis with colonic obstruction. lactulose 30 mL p.o. once Surgery on board, O/P follow up on 05/01. S/p perineal rectosigmoidectomy day 1. Wash surgical site TID. Normocytic normochromic anemia Reactive thrombocytosis Vitamin B12 547, folic acid 8.2 2 Iron 15, TIBC 186, percent saturation 8.1 Iron sucrose complex IV daily for 5 days Bipolar disorder, stable Quetiapine 200 mg p.o. Q 8 Lamotrigine 200 mg p.o. q.12 Fibromyalgia Supportive management with with therapy Right breast implant rupture Incidental finding Outpatient follow up DIET: clear liquid diet DVT PROPHYLAXIS: Lovenox GI PROPHYLAXIS: Held due to active rectal bleed CODE STATUS: Goals of care discussed with patient at bedside for more than 17 minutes. Full code DISPOSITION: Med/surge Plan discussed with: Patient, Other (Nurses) Date of Service: Apr 23, 2025 Billing Provider: VALENTIN REBOLLEDO MD Common Visit Codes: [id number] INP/OBS CARE(HIGH) SANDRA HUNTER RESIDENT Apr 23, 2025 13:41 VALENTIN REBOLLEDO MD Apr 30, 2025 18:22
[2025-04-24] VITALS (8 sets, daily range): BP systolic 88–129; BP diastolic 51–90; PULSE 65–82; RESP 16–20; TEMP 97.6–99.4; O2SAT 95–97
[2025-04-24 06:00] LABS: Hemoglobin 11.6 g/dL (12.2-16.2)
[2025-04-24 06:04] LABS: Hematocrit 33.6 % (36.0-46.0); Mean Corpuscular Hemoglobin 29.1 pg (28.0-32.0); Mean Corpuscular Volume 84.3 fL (80.0-100.0); Nucleated Red Blood Cells % 0.0 %
[2025-04-24 06:12] LABS: Anion Gap 9 (5-15); Carbon Dioxide 25 mmol/L (20-31); Chloride 100 mmol/L (98-107); Potassium 3.9 mmol/L (3.5-5.1)
[2025-04-24 06:14] LABS: Calcium 10.1 mg/dL (8.7-10.4)
[2025-04-24 06:18] LABS: Glucose 97 mg/dL (74-106)
[2025-04-24 06:19] LABS: BUN/Creatinine Ratio 7.4 (10.0-20.0)
[2025-04-24 06:24] LABS: Blood Urea Nitrogen 6 mg/dL (9-23); Sodium 134 mmol/L (136-145)
[2025-04-24 11:04] LABS: Magnesium 1.9 mg/dL (1.6-2.6)
--- NOTE | 2025-04-24 12:49 | DVHPN2 ---
Progress Note - Dictate Date Seen: Apr 24, 2025 Medical Necessity Reason Pt with a Central, PICC or Fol: No The following are medically ne: Ng Catheter Subjective E: no major events o/n. feels better. juan alberto full liquid diet. vital signs Vital Sign Date Time Temp Pulse Resp B/P (MAP) Pulse Ox O2 Delivery O2 Flow Rate FiO2 04/24/25 09:00 99.4 80 16 129/90 (103) 96 99.4 04/24/25 07:59 Room Air* 0 21 Total Intake and Output 04/23/25 04/23/25 04/24/25 15:00 23:00 07:00 Intake Total 500 ml 800 ml Output Total 650 ml 1000 ml Balance -150 ml -200 ml medications Current Medications Medications Dose Ordered Sig/Sharri Route Start Time Stop Time Status Last Admin Dose Admin Ondansetron HCl 4 mg Q4HP PRN IV 04/21/25 03:15 Quetiapine Fumarate 200 mg Q8HR PO 04/21/25 06:00 04/24/25 05:38 200 MG Lamotrigine 200 mg Q12HR PO 04/21/25 10:00 04/24/25 09:15 200 MG Pantoprazole Sodium 40 mg DAILY IV 04/22/25 10:00 04/23/25 08:45 40 MG Hydromorphone HCl 0.5 mg Q4HPRN PRN IV 04/21/25 03:15 04/23/25 02:20 0.5 MG Lactated Ringer's 1,000 ml @ 100 mls/hr Q10H IV 04/22/25 10:00 04/22/25 12:05 100 MLS/HR Piperacillin Sod/ Tazobactam Sod 100 ml @ 25 mls/hr Q8HR IV 04/22/25 14:00 04/23/25 05:37 25 MLS/HR Acetaminophen/ Hydrocodone Bitart 1 tab Q6HPRN PRN PO 04/23/25 00:15 04/24/25 09:15 1 TAB objective GEN: NAD RECTAL: surgical site healing well. laboratory and microbiology Laboratory Tests 04/24/25 05:31 Test 04/24/25 05:31 Range/Units Serum Glucose 97 74-106 mg/dL Assessment/Plan A: 1. s/p perineal rectosigmoidectomy for rectal prolapse POD #2 doing well. P: 1. stable from surgery POV for DC home. 2. wash surgical site (sitz bath) TID. 3. clear liquid diet. advance to soft diet in 1-2 days. 4. f/u in clinic on 05/01. call [phone] for f/u appt Dietary Evaluation Review Comments: 1) Initiate Ensure Clear qd 2) Advance to soft diet when medically feasible 3) Encourage optimal PO intake 4) Continue to monitor I&O, labs, and skin integrity Expected Outcomes/Goals: 1) appetite and labs to improve 2) diet to advance 3) f/u in 3-5 days Plan discussed with: Patient SCAR LANDA MD Apr 24, 2025 12:49
--- NOTE | 2025-04-24 13:00 | DVHPNRES ---
Progress Note Date Seen: Apr 24, 2025 Resident Creating Document: SANDRA HUNTER RESIDENT Medical Necessity Reason Pt with a Central, PICC or Fol: No The following are medically ne: Ng Catheter Subjective Review of Systems This is a 64-year-old female with past medical history of rectal prolapse which she has been able to reduce for 20 years, fibromyalgia not on any medication, bipolar disorder stable since 2005, hysterectomy, breast augmentation, who came from [facility] on 04/20/25 with complaints of being unable to push back her rectal prolapse for 3 days, rectal bleeding since 3 days and constipation for 19 days. As per the patient, she went to [facility] 2 days ago via ambulance when she saw blood-tinged fluid from the prolapse site and she was unable to reduce the prolapse back in. In the hospital they attempted to reduce it twice in the past 2 days and she was only able to hold it for a while, but she was only able to hold it in for 30 minutes before it came out again. She says the bleeding increased after the doctors there tried to reduce the prolapse each time. She reports for the past 19 days she has taken various stool softeners and Fleet enema which has not helped passed gas or stool. She is able to tolerate a diet but eats less knowing it will cause her more abdominal pain which she has started to feel as she is unable to pass flatus or stool. Past medical history: As above Past surgical history: As above Social history: Patient denies smoking, drinks alcohol 1 to 2 times a year and smokes marijuana once a month for fibromyalgia family history: Reviewed and noncontributory to the management of this case Home medications: Seroquel 200 mg q.i.d., lamotrigine 200 mg b.i.d. Allergies: None code status: Full code ROS: Constitutional: Denies weight loss, fever and chills. HEENT: Denies changes in vision and hearing. Respiratory: Denies shortness of breath and cough Cardiovascular: Denies chest discomfort or palpitations GI: Constipation, rectal bleeding, rectal prolapse : Denies dysuria and urinary frequency. Musculoskeletal: Denies myalgias and joint pain Skin: Denies rash and pruritus. Neurological: Denies dizziness, headache, vision or hearing problems 04/23/2025: She is s/p perineal rectosigmoidectomy, no new complaints. Continue monitoring and managing. 04/24/2025: Patient was examined at bedside today. Surgery cleared for discharge. She complains of 8 episodes of diarrhea, described as watery with solid stools, no blood seen. Objective vital signs Vital Sign Date Time Temp Pulse Resp B/P (MAP) Pulse Ox O2 Delivery O2 Flow Rate FiO2 04/24/25 09:00 99.4 80 16 129/90 (103) 96 99.4 04/24/25 07:59 Room Air* 0 21 Total Intake and Output 04/23/25 04/23/25 04/24/25 15:00 23:00 07:00 Intake Total 500 ml 800 ml Output Total 650 ml 1000 ml Balance -150 ml -200 ml medications Current Medications Medications Dose Ordered Sig/Sharri Route Start Time Stop Time Status Last Admin Dose Admin Ondansetron HCl 4 mg Q4HP PRN IV 04/21/25 03:15 Quetiapine Fumarate 200 mg Q8HR PO 04/21/25 06:00 04/24/25 05:38 200 MG Lamotrigine 200 mg Q12HR PO 04/21/25 10:00 04/24/25 09:15 200 MG Pantoprazole Sodium 40 mg DAILY IV 04/22/25 10:00 04/23/25 08:45 40 MG Hydromorphone HCl 0.5 mg Q4HPRN PRN IV 04/21/25 03:15 04/23/25 02:20 0.5 MG Lactated Ringer's 1,000 ml @ 100 mls/hr Q10H IV 04/22/25 10:00 04/22/25 12:05 100 MLS/HR Piperacillin Sod/ Tazobactam Sod 100 ml @ 25 mls/hr Q8HR IV 04/22/25 14:00 04/23/25 05:37 25 MLS/HR Acetaminophen/ Hydrocodone Bitart 1 tab Q6HPRN PRN PO 04/23/25 00:15 04/24/25 09:15 1 TAB Examination General: Patient alert and oriented in person, place and time. Patient following commands. HEENT: Normocephalic, atraumatic, moist mucous membranes Respiratory/pulmonary: Clear lungs bilaterally, vesicular murmurs present in almost all lung avila, no associated crackles or wheezes. Cardiovascular: Normal heart sounds S1 and S2 with no associated murmurs Abdomen: Distended tender abdomen. Extremities: There is no peripheral edema present at the lower extremities. Peripheral Pulses: 3+ Radial (R). 3+ Radial (L). 3+ Dorsalis pedis (R). 3+ Dorsalis pedis(L) Skin: No rashes or pruritus, there is no sacral edema present at this time. Neurological: Intact cranial nerves with no focal neurologic deficits Rectal exam: Bruising in the perineal area, tender to palpation. No abnormal discharge seen. laboratory and microbiology Laboratory Tests 04/24/25 05:31 Test 04/24/25 05:31 Range/Units Serum Glucose 97 74-106 mg/dL Problem List/Assessment/Plan Problem List/Assessment/Plan Rectal prolapse s/p perineal rectosigmoidectomy Hematochezia due to above Stercoral colitis with colonic obstruction Hyponatremia Obstipation Mild to moderate protein energy malnutrition Supportive management with hydromorphone, Zofran IV NS maintenance IV Protonix [address] abdomen and pelvis without contrast , shows Marked fecal retention with inflammatory changes in the rectum compatible with stercoral colitis with colonic obstruction. lactulose 30 mL p.o. once Surgery on board, O/P follow up on 05/01. S/p perineal rectosigmoidectomy day 1. Wash surgical site TID. Normocytic normochromic anemia Reactive thrombocytosis Vitamin B12 547, folic acid 8.2 2 Iron 15, TIBC 186, percent saturation 8.1 Iron sucrose complex IV daily for 5 days Bipolar disorder, stable Quetiapine 200 mg p.o. Q 8 Lamotrigine 200 mg p.o. q.12 Fibromyalgia Supportive management with with therapy Right breast implant rupture Incidental finding Outpatient follow up DIET: clear liquid diet DVT PROPHYLAXIS: Lovenox GI PROPHYLAXIS: Held due to active rectal bleed CODE STATUS: Goals of care discussed with patient at bedside for more than 17 minutes. Full code DISPOSITION: Med/surge Plan discussed with: Patient, Other (Nurses) Dietary Evaluation Review Comments: 1) Initiate Ensure Clear qd 2) Advance to soft diet when medically feasible 3) Encourage optimal PO intake 4) Continue to monitor I&O, labs, and skin integrity Expected Outcomes/Goals: 1) appetite and labs to improve 2) diet to advance 3) f/u in 3-5 days Date of Service: Apr 24, 2025 Billing Provider: VALENTIN REBOLLEDO MD Common Visit Codes: [id number] INP/OBS CARE(HIGH) SANDRA HUNTER RESIDENT Apr 24, 2025 13:00 VALENTIN REBOLLEDO MD Apr 30, 2025 18:22
[2025-04-24] MEDS: ENSURE CLEAR Mixed Berry 8oz Carton PO SCH (18:03)
[2025-04-25 04:35] VITALS: BP 139/100; PULSE 78; RESP 18; TEMP 98.4; O2SAT 96
[2025-04-25 06:09] LABS: Hematocrit 30.8 % (36.0-46.0); Hemoglobin 10.4 g/dL (12.2-16.2); Mean Corpuscular Hemoglobin 28.5 pg (28.0-32.0); Mean Corpuscular Volume 84.6 fL (80.0-100.0); Nucleated Red Blood Cells % 0.1 %
[2025-04-25 06:26] LABS: Anion Gap 10 (5-15); Calcium 9.1 mg/dL (8.7-10.4); Carbon Dioxide 23 mmol/L (20-31); Chloride 101 mmol/L (98-107)
[2025-04-25 06:31] LABS: Glucose 91 mg/dL (74-106)
[2025-04-25 06:32] LABS: BUN/Creatinine Ratio 6.4 (10.0-20.0); Magnesium 1.7 mg/dL (1.6-2.6); Potassium 3.3 mmol/L (3.5-5.1); Sodium 134 mmol/L (136-145)
[2025-04-25 06:37] LABS: Blood Urea Nitrogen 5 mg/dL (9-23)
[2025-04-25] MEDS: POTASSIUM PHOSPHATE 22 MEQ in SODIUM CHL 0.9% 100 ML IV ONE (07:15)
--- NOTE | 2025-04-25 08:51 | DVH ---
Date: 04/25/2025 07:19 AM Examination: XY KUB ABDOMEN SINGLE VIEW History: Abdominal pain Rule out obstruction Comparison: None TECHNIQUE: Frontal views of the abdomen was obtained. FINDINGS/IMPRESSION: Large stool burden. Lung bases and upper abdomen are collimated from field of view. No acute osseous abnormality.
[2025-04-25 09:07] VITALS: BP 94/62; PULSE 96; RESP 20; TEMP 97.9; O2SAT 94
[2025-04-25] MEDS ORDERED: LACTULOSE 20Gm/30ML SOLN PO ONE (10:15)
[2025-04-25] MEDS ORDERED: POLYETHYLENE GLYCOL 17 GM PWDR PO PRN (10:15)
[2025-04-25] MEDS: POTASSIUM EFFERVESENT TAB 25 MEQ PO ONE (11:44)
[2025-04-25] MEDS: DOCUSATE SOD 100 MG CAP PO SCH (11:45)
[2025-04-25] MEDS: GOLYTELY 4L KIT PO ONE (11:45)
--- NOTE | 2025-04-25 11:52 | DVHPNRES ---
Progress Note Date Seen: Apr 25, 2025 Resident Creating Document: SANDRA HUNTER RESIDENT Medical Necessity Reason Pt with a Central, PICC or Fol: No Subjective Review of Systems This is a 64-year-old female with past medical history of rectal prolapse which she has been able to reduce for 20 years, fibromyalgia not on any medication, bipolar disorder stable since 2005, hysterectomy, breast augmentation, who came from [facility] on 04/20/25 with complaints of being unable to push back her rectal prolapse for 3 days, rectal bleeding since 3 days and constipation for 19 days. As per the patient, she went to [facility] 2 days ago via ambulance when she saw blood-tinged fluid from the prolapse site and she was unable to reduce the prolapse back in. In the hospital they attempted to reduce it twice in the past 2 days and she was only able to hold it for a while, but she was only able to hold it in for 30 minutes before it came out again. She says the bleeding increased after the doctors there tried to reduce the prolapse each time. She reports for the past 19 days she has taken various stool softeners and Fleet enema which has not helped passed gas or stool. She is able to tolerate a diet but eats less knowing it will cause her more abdominal pain which she has started to feel as she is unable to pass flatus or stool. Past medical history: As above Past surgical history: As above Social history: Patient denies smoking, drinks alcohol 1 to 2 times a year and smokes marijuana once a month for fibromyalgia family history: Reviewed and noncontributory to the management of this case Home medications: Seroquel 200 mg q.i.d., lamotrigine 200 mg b.i.d. Allergies: None code status: Full code ROS: Constitutional: Denies weight loss, fever and chills. HEENT: Denies changes in vision and hearing. Respiratory: Denies shortness of breath and cough Cardiovascular: Denies chest discomfort or palpitations GI: Constipation, rectal bleeding, rectal prolapse : Denies dysuria and urinary frequency. Musculoskeletal: Denies myalgias and joint pain Skin: Denies rash and pruritus. Neurological: Denies dizziness, headache, vision or hearing problems 04/23/2025: She is s/p perineal rectosigmoidectomy, no new complaints. Continue monitoring and managing. 04/24/2025: Surgery cleared for discharge. She complains of 8 episodes of diarrhea, described as watery with solid stools, no blood seen. 04/24/2025: Patient was seen at bedside today. Patient had 8-10 episodes of diarrhea yesterday, since yesterday morning she complains of obstipation. KUB shows large stool burden; started on GoLYTELY. Objective vital signs Vital Sign Date Time Temp Pulse Resp B/P (MAP) Pulse Ox O2 Delivery O2 Flow Rate FiO2 04/25/25 09:07 97.9 96 20 94/62 (73) 94 97.9 04/24/25 20:00 Room Air* 0 21 Total Intake and Output 04/24/25 04/24/25 04/25/25 15:00 23:00 07:00 Intake Total 954 ml 700 ml Output Total 850 ml 1060 ml Balance 104 ml -360 ml medications Current Medications Medications Dose Ordered Sig/Sharri Route Start Time Stop Time Status Last Admin Dose Admin Ondansetron HCl 4 mg Q4HP PRN IV 04/21/25 03:15 Quetiapine Fumarate 200 mg Q8HR PO 04/21/25 06:00 04/25/25 04:24 200 MG Lamotrigine 200 mg Q12HR PO 04/21/25 10:00 04/25/25 11:45 200 MG Pantoprazole Sodium 40 mg DAILY IV 04/22/25 10:00 04/23/25 08:45 40 MG Piperacillin Sod/ Tazobactam Sod 100 ml @ 25 mls/hr Q8HR IV 04/22/25 14:00 04/23/25 05:37 25 MLS/HR Enteral Nutritional Formula 240 ml QID PO 04/24/25 18:00 04/25/25 11:46 240 ML Docusate Sodium 100 mg BID PO 04/25/25 10:00 04/25/25 11:45 100 MG Acetaminophen 650 mg Q4HP PRN PO 04/25/25 10:00 Examination General: Patient alert and oriented in person, place and time. Patient following commands. HEENT: Normocephalic, atraumatic, moist mucous membranes Respiratory/pulmonary: Clear lungs bilaterally, vesicular murmurs present in almost all lung avila, no associated crackles or wheezes. Cardiovascular: Normal heart sounds S1 and S2 with no associated murmurs Abdomen: Distended tender abdomen. Extremities: There is no peripheral edema present at the lower extremities. Peripheral Pulses: 3+ Radial (R). 3+ Radial (L). 3+ Dorsalis pedis (R). 3+ Dorsalis pedis(L) Skin: No rashes or pruritus, there is no sacral edema present at this time. Neurological: Intact cranial nerves with no focal neurologic deficits Rectal exam: Bruising in the perineal area, tender to palpation. No abnormal discharge seen. laboratory and microbiology Laboratory Tests 04/25/25 11:06 04/25/25 05:19 Test 04/25/25 05:19 Range/Units Serum Glucose 91 74-106 mg/dL Problem List/Assessment/Plan Problem List/Assessment/Plan Rectal prolapse s/p perineal rectosigmoidectomy Hematochezia due to above Stercoral colitis with colonic obstruction Hyponatremia, resolved Obstipation Mild to moderate protein energy malnutrition Electrolyte abnormalities- hypophosphatemia, hypokalemia Supportive management with hydromorphone, Zofran IV NS maintenance IV Protonix [address] abdomen and pelvis without contrast , shows Marked fecal retention with inflammatory changes in the rectum compatible with stercoral colitis with colonic obstruction. lactulose 30 mL p.o. once Surgery on board, O/P follow up on 05/01. S/p perineal rectosigmoidectomy day 3. Wash surgical site TID. KUB today shows large stool burden. Patient started on GoLYTELY, continue monitoring Normocytic normochromic anemia Reactive thrombocytosis Vitamin B12 547, folic acid 8.2 2 Iron 15, TIBC 186, percent saturation 8.1 Iron sucrose complex IV daily for 5 days Bipolar disorder, stable Quetiapine 200 mg p.o. Q 8 Lamotrigine 200 mg p.o. q.12 Fibromyalgia Supportive management with with therapy Right breast implant rupture Incidental finding Outpatient follow up DIET: clear liquid diet DVT PROPHYLAXIS: Lovenox GI PROPHYLAXIS: Held due to active rectal bleed CODE STATUS: Goals of care discussed with patient at bedside for more than 17 minutes. Full code DISPOSITION: Med/surge Plan discussed with: Patient, Other (Nurses) My Orders My Orders Orders - SANDRA HUNTER RESIDENT Procedure Category Date Status Time Nutritional PHA 04/24/25 In Process Supplements (Ensure 18:00 Kub Abdomen Single XY 04/25/25 Resulted View 07:01 Dietary Evaluation Review Comments: 1) Initiate Ensure Clear qd 2) Advance to soft diet when medically feasible 3) Encourage optimal PO intake 4) Continue to monitor I&O, labs, and skin integrity Expected Outcomes/Goals: 1) appetite and labs to improve 2) diet to advance 3) f/u in 3-5 days Date of Service: Apr 25, 2025 Billing Provider: VALENTIN REBOLLEDO MD Common Visit Codes: [id number] INP/OBS CARE(HIGH) SANDRA HUNTER RESIDENT Apr 25, 2025 11:52 VALENTIN REBOLLEDO MD Apr 30, 2025 18:22
[2025-04-25 13:20] VITALS: BP 114/77; PULSE 76; RESP 18; TEMP 99.2; O2SAT 95
[2025-04-25] MEDS: NEUTRA-PHOS TABLET PO SCH (14:15)
[2025-04-25] MEDS: ACETAMINOPHEN 325 MG TAB PO PRN (17:04)
[2025-04-25 19:08] LABS: Potassium 3.7 mmol/L (3.5-5.1)
[2025-04-25 20:00] VITALS: PULSE 78; RESP 18; O2SAT 95
[2025-04-25 20:58] VITALS: BP 129/82; PULSE 78; RESP 18; TEMP 97.8; O2SAT 90
[2025-04-26 00:57] VITALS: BP 131/100; PULSE 81; RESP 18; TEMP 97.7; O2SAT 96
[2025-04-26 04:35] VITALS: BP_SYST 116; BP_SYST 151; BP_DIAS 104; BP_DIAS 77; PULSE 74; PULSE 88; RESP 18; TEMP 97.3; TEMP 97.6; O2SAT 100; O2SAT 96
[2025-04-26 06:39] LABS: Hematocrit 31.3 % (36.0-46.0); Hemoglobin 10.6 g/dL (12.2-16.2); Mean Corpuscular Hemoglobin 29.1 pg (28.0-32.0); Mean Corpuscular Volume 85.6 fL (80.0-100.0); Nucleated Red Blood Cells % 0.1 %
[2025-04-26 06:50] LABS: Chloride 102 mmol/L (98-107); Sodium 138 mmol/L (136-145)
[2025-04-26 06:51] LABS: Anion Gap 12 (5-15); Calcium 9.1 mg/dL (8.7-10.4); Carbon Dioxide 24 mmol/L (20-31)
[2025-04-26 06:53] LABS: Potassium 2.9 mmol/L (3.5-5.1)
[2025-04-26 06:56] LABS: BUN/Creatinine Ratio 8.0 (10.0-20.0); Glucose 81 mg/dL (74-106)
[2025-04-26 07:00] LABS: Blood Urea Nitrogen 6 mg/dL (9-23)
[2025-04-26] MEDS: POTASSIUM CHL 20MEQ/100ML 100 ML IV SCH (07:15)
[2025-04-26 08:00] VITALS: RESP 17; O2SAT 96
[2025-04-26] MEDS: POTASSIUM EFFERVESENT TAB 25 MEQ PO ONE (08:31)
[2025-04-26] MEDS ORDERED: LACTULOSE 20Gm/30ML SOLN PO SCH (10:00)
[2025-04-26 12:55] VITALS: BP 118/81; PULSE 69; RESP 18; TEMP 97.7; O2SAT 96
[2025-04-26] MEDS ORDERED: ACET-1882 PO (13:17)
[2025-04-26] MEDS ORDERED: PANT40TA2 PO (13:17)
--- NOTE | 2025-04-26 16:30 | DVHDSRES ---
Discharge Summary Date of Admission Resident Creating Document: SANDRA HUNTER RESIDENT Apr 21, 2025 at 03:01 Date of Discharge: Apr 26, 2025 Labs/Diagnostic Data: Laboratory Results Test 04/26/25 14:44 04/26/25 05:23 04/25/25 05:19 04/22/25 14:20 Potassium Level 3.1 mmol/L (3.5-5.1) White Blood Count 4.4 10^3/uL (4.4-10.8) Red Blood Count 3.66 10^6/uL (4.0-5.20) Hemoglobin 10.6 g/dL (12.2-16.2) Hematocrit 31.3 % (36.0-46.0) Mean Corpuscular Volume 85.6 fL (80.0-100.0) Mean Corpuscular Hemoglobin 29.1 pg (28.0-32.0) Mean Corpuscular Hemoglobin Concent 33.9 g/dL (32.0-36.0) Red Cell Distribution Width 14.5 % (11.8-14.3) Platelet Count 459 10^3/uL (140-450) Mean Platelet Volume 6.6 fL (6.9-10.8) Neutrophils (%) (Auto) 59.7 % (37.0-80.0) Lymphocytes (%) (Auto) 22.5 % (10.0-50.0) Monocytes (%) (Auto) 17.6 % (0.0-12.0) Eosinophils (%) (Auto) 0.0 % (0.0-7.0) Basophils (%) (Auto) 0.2 % (0.0-2.0) Neutrophils # (Auto) 2.6 10 ^3/uL (1.6-8.6) Lymphocytes # (Auto) 1.0 10 ^3/uL (0.4-5.4) Monocytes # (Auto) 0.8 10 ^3/uL (0-1.3) Eosinophils # (Auto) 0 10 ^3/uL (0-0.8) Basophils # (Auto) 0 10 ^3/uL (0-0.2) Nucleated Red Blood Cells 0.1 % Sodium Level 138 mmol/L (136-145) Chloride Level 102 mmol/L (98-107) Carbon Dioxide Level 24 mmol/L (20-31) Anion Gap 12 (5-15) Blood Urea Nitrogen 6 mg/dL (9-23) Creatinine 0.75 mg/dL (0.550-1.02) Glomerular Filtration Rate Calc 90 mL/min (>90) BUN/Creatinine Ratio 8.0 (10.0-20.0) Serum Glucose 81 mg/dL (74-106) Calcium Level 9.1 mg/dL (8.7-10.4) Phosphorus Level 2.5 mg/dL (2.4-5.1) Magnesium Level 1.7 mg/dL (1.6-2.6) Lactic Acid Level 0.7 mmol/L (0.4-2.0) Test 04/22/25 06:35 04/21/25 08:27 04/21/25 02:14 Serum Osmolality 284 mOsm/kg (278-298) Lactate Dehydrogenase 214 U/L (120-246) Hemoglobin A1c 5.5 % A1C (<5.7) Prothrombin Time 11.8 sec (9.3-11.8) Prothrombin Time INR 1.13 (0.9-1.15) Activated Partial Thromboplast Time 40.4 SEC (24.5-34.5) Iron Level 15 ug/dL (50-170) Total Iron Binding Capacity 186 ug/dL (250-425) Percent Iron Saturation 8.1 % (15-50) Ferritin 183.2 ng/mL (10-291) Total Bilirubin 0.5 mg/dL (0.2-1.0) Direct Bilirubin 0.3 mg/dL (<0.3) Aspartate Amino Transferase (AST) 20 U/L (13-40) Alanine Aminotransferase (ALT) 14 U/L (7-40) Alkaline Phosphatase 131 U/L (46-116) Total Protein 5.6 g/dL (5.7-8.2) Albumin 3.0 g/dL (3.2-4.8) Vitamin B12 Level 547 pg/mL (211-911) Folic Acid 8.22 ng/mL (>5.38) Other Laboratory Tests 04/26/25 14:44 04/26/25 05:23 Brief Hx & Hospital Course: History on arrival: This is a 64-year-old female with past medical history of rectal prolapse which she has been able to reduce for 20 years, fibromyalgia not on any medication, bipolar disorder stable since 2005, hysterectomy, breast augmentation, who came from [facility] on 04/20/25 with complaints of being unable to push back her rectal prolapse, rectal bleeding and constipation for 19 days on arrival. As per the patient, she went to [facility] days ago via ambulance when she saw blood-tinged fluid from the prolapse site and she was unable to reduce the prolapse back in. In the hospital they attempted to reduce it twice in the past 2 days and she was only able to hold it for a while, but she was only able to hold it in for 30 minutes before it came out again. She says the bleeding increased after the doctors there tried to reduce the prolapse each time. She reports for the past 19 days she has taken various stool softeners and Fleet enema which has not helped passed gas or stool. She is able to tolerate a diet but eats less knowing it will cause her more abdominal pain which she has started to feel as she is unable to pass flatus or stool. Brief hospital stay: Initial labs show electrolyte abnormalities. CT abdomen shows marked fecal retention with inflammatory changes in the rectum compatible with stercoral colitis with colonic obstruction, right breast implant rupture likely. Patient was started on Supportive management with hydromorphone, Zofran, IV fluids, IV Protonix. Surgery on board, recommended perineal rectosigmoidectomy. Patient underwent perineal rectosigmoidectomy on 04/22/2025. Patient continued to complain of obstipation. KUB was completed, showed large stool burden. Patient started on GoLYTELY. Patient is currently having bowel movements and her abdomen is soft on palpation now. Conditions treated during stay: Rectal prolapse s/p perineal rectosigmoidectomy Hematochezia due to above Stercoral colitis with colonic obstruction Hyponatremia, resolved Obstipation Mild to moderate protein energy malnutrition Electrolyte abnormalities- hypophosphatemia, hypokalemia, resolved Normocytic normochromic anemia Reactive thrombocytosis Bipolar disorder, stable Fibromyalgia Right breast implant rupture Plan: Continue Protonix p.o. daily Use Tylenol p.o. as needed for pain management. Avoiding ibuprofen, Gabbs in context of recent surgery to avoid any bleeding risk and constipation. Please follow with PCP in 1 week Please follow with surgery in outpatient clinic in 7-10 days on 05/01/2025 Operations or Procedures Report Details Date: 04/22/25 Preop Diagnosis: 1. Rectal prolapse Postop Diagnosis: 1. Same Surgeon: Riaz Sher MD Esthetician And Manager Medical Spa: None Anesthesiologist: Gerry Zhu CRNA Anesthesia: Local Drains: None Consent: The surgery and its risks including but not limited to infection, bleeding requiring possible blood transfusion with the risk of hepatitis or HIV infection, possible perioperative AK or stroke, possible anal or rectal stricture requiring further intervention in the future such as dilation were explained to the patient. All questions were answered to her satisfaction. She expressed verbal understanding and wished to proceed with the surgery. Complications: None Estimated Blood Loss: 50 mL Fluids: 1 L Name of Procedure Performed Peroneal rectosigmoidectomy Procedure Details Procedure Details: After induction of general anesthesia, patient was placed in the high lithotomy position anal region was prepped and draped in standard surgical fashion. Approximately 25 mL of 0.5% Marcaine with epinephrine was used as a local anesthesia around the anal region incision was made proximally 2 cm away from the dentate line in the rectal mucosa and this was fully divided circumferentially. This released the the rectum from the anal region. During the dissection a small opening was made in the peritoneum. The peritoneum was then suture closed using 0 Vicryl sutures in locked fashion. The rectosigmoid colon was also divided proximally near the level of the anal verge. This was removed and sent off to pathology. Interrupted 2-0 Vicryl sutures were placed in interrupted fashion circumferentially to reapproximate the distal sigmoid wall to the distal mucosal wall in full-thickness fashion. There was ample opening without narrowing big enough to fit 3-0 my fingers in easily. There was no active bleeding at the site the mucosa appeared viable. A 28 Malagasy Malecot tube wrapped in 4 x 4 gauze dressing soaked in lidocaine jelly was then inserted into the anal canal for additional hemostasis. Surgical site was cleaned and dried. Sponge, needle, instrument count at the end of the case were reported to be correct by the nursing staff. The patient tolerated procedure well and was awake, extubated and transferred to recovery in stable condition. Specimen: Rectosigmoid colon Condition Stable Date: 04/25/2025 07:19 AM Examination: XY KUB ABDOMEN SINGLE VIEW History: Abdominal pain Rule out obstruction Comparison: None TECHNIQUE: Frontal views of the abdomen was obtained. FINDINGS/IMPRESSION: Large stool burden. Lung bases and upper abdomen are collimated from field of view. No acute osseous abnormality. --------- CHEST RADIOGRAPH Indication: sob Technique: Single frontal view of the chest was obtained COMPARISON: CHEST TWO VIEWS on DOS: 09/05/19 FINDINGS: Lines and Tubes: None Lungs: Clear. Soft tissue density shadow and breast prosthesis overlies the right middle lung zone. Pleura: No effusion. No pneumothorax. Cardiomediastinal contours: Unremarkable Bones: Unremarkable IMPRESSION: 1. No radiographic evidence of acute cardiopulmonary abnormality. Exam: CT CT AB PEL WO CON-NO ORAL OR IV History: eval for obstruction Comparison Study: None Technique: Multidetector spiral CT of the abdomen and pelvis was performed from lung bases to pubic symphysis. Imaging was performed without intravenous contrast. Coronal and sagittal multiplanar reformats were obtained from the axial data set by the technologist. Radiation Dose : 1. Abdomen/Pelvis: CTDIvol 11.17 mGy, DLP 717.4 mGy*cm. Findings: Evaluation of vasculature and solid organs is limited due to lack of intravenous contrast use. Lung Bases: Lung bases are clear. Visualized portions of the heart and pericardium are unremarkable. Liver: The liver is normal in size. No focal lesions. Gallbladder and Biliary Tree: The gallbladder is unremarkable No intrahepatic or extrahepatic biliary ductal dilatation. Spleen: Unremarkable Pancreas: The pancreas is grossly unremarkable. Adrenal Glands: Unremarkable Kidneys: Kidneys are unremarkable without calculi or hydronephrosis. GI tract: The stomach is grossly normal in appearance. No evidence of small bowel wall thickening or abnormal dilatation to suggest bowel obstruction. There is marked distention of the colon with stool. For example the cecum measures 10.3 cm. Marked fecal retention in the rectum measuring 7.3 cm with mucosal thickening of the rectum, pericolonic fluid and fat stranding. There is upstream dilatation of the entire colon. The appendix is not visualized. Peritoneum/mesentery/retroperitoneum. No evidence of free intraperitoneal air. No ascites. No evidence of suspicious lymphadenopathy. Abdominal Wall: Bilateral calcified breast implants with suspected rupture of the right implant. Vasculature: The visualized abdominal aorta is normal in size and caliber. Evaluation of abdominal and pelvic vessels is limited due to lack of intravenous contrast. Urinary Bladder: Grossly unremarkable for degree of distention. Pelvic Organs: Unremarkable Musculoskeletal: No aggressive focal bony lesions, acute fractures or dislocation. IMPRESSION: 1. Marked fecal retention with inflammatory changes in the rectum compatible with stercoral colitis with colonic obstruction. 2. Suspect possible right breast implant rupture. Correlation with dedicated breast imaging recommended if clinically warranted. Condition at Discharge: Stable Final Diagnosis/Problems List Rectal prolapse s/p perineal rectosigmoidectomy Hematochezia due to above Stercoral colitis with colonic obstruction Hyponatremia, resolved Obstipation Mild to moderate protein energy malnutrition Electrolyte abnormalities- hypophosphatemia, hypokalemia, resolved Normocytic normochromic anemia Reactive thrombocytosis Bipolar disorder, stable Fibromyalgia Right breast implant rupture Discharge Disposition: Home Discharge Instruct/Medications Diet: Regular Activity: No Restrictions, As Tolerated Follow Up/Referral: Please follow with PCP in 1 week Please follow with surgery in outpatient clinic in 7-10 days on 05/01/2025 Medications: As per EHR New Medications: Pantoprazole Sodium Sesquihydr (Protonix) 40 Mg Tab 40 MG PO DAILY for 30 Days, #30 TAB Acetaminophen (Acetaminophen) 325 Mg Tab 650 MG PO Q4HP PRN for 14 Days, #140 TAB Scheduled Pantoprazole Sodium Sesquihydr (Protonix), 40 MG PO DAILY Scheduled PRN Acetaminophen (Acetaminophen), 650 MG PO Q4HP PRN Discharge Statement: "Patient was advised to return to the ER or call 911 if any headaches, dizziness, shortness of breath, chest pain, abdominal pain, bleeding, fevers, or worsening of medical condition. Patient was counseled about treatment plan, medications, possible side effects, patientverbalized understanding. All questions were answered to the best of my ability. This discharge took greater then 30 minutes in planning, reviewing documentation, counseling the patient, and discussing with other team members." ASSESSMENT ASSESSMENT Assessment Rectal prolapse s/p perineal rectosigmoidectomy Hematochezia due to above Stercoral colitis with colonic obstruction Hyponatremia, resolved Obstipation Mild to moderate protein energy malnutrition Electrolyte abnormalities- hypophosphatemia, hypokalemia, resolved Normocytic normochromic anemia Reactive thrombocytosis Bipolar disorder, stable Fibromyalgia Right breast implant rupture Date of Service: Apr 26, 2025 Billing Provider: VALENTIN REBOLLEDO MD Common Visit Codes: 24600-OEN/OBS DISCH DAY >30min SANDRA HUNTER RESIDENT Apr 26, 2025 16:30
--- NOTE | 2025-04-26 16:47 | DVHPNRES ---
Progress Note Date Seen: Apr 26, 2025 Resident Creating Document: SANDRA HUNTER RESIDENT Medical Necessity Reason Pt with a Central, PICC or Fol: No Subjective Review of Systems This is a 64-year-old female with past medical history of rectal prolapse which she has been able to reduce for 20 years, fibromyalgia not on any medication, bipolar disorder stable since 2005, hysterectomy, breast augmentation, who came from [facility] on 04/20/25 with complaints of being unable to push back her rectal prolapse for 3 days, rectal bleeding since 3 days and constipation for 19 days. As per the patient, she went to [facility] 2 days ago via ambulance when she saw blood-tinged fluid from the prolapse site and she was unable to reduce the prolapse back in. In the hospital they attempted to reduce it twice in the past 2 days and she was only able to hold it for a while, but she was only able to hold it in for 30 minutes before it came out again. She says the bleeding increased after the doctors there tried to reduce the prolapse each time. She reports for the past 19 days she has taken various stool softeners and Fleet enema which has not helped passed gas or stool. She is able to tolerate a diet but eats less knowing it will cause her more abdominal pain which she has started to feel as she is unable to pass flatus or stool. Past medical history: As above Past surgical history: As above Social history: Patient denies smoking, drinks alcohol 1 to 2 times a year and smokes marijuana once a month for fibromyalgia family history: Reviewed and noncontributory to the management of this case Home medications: Seroquel 200 mg q.i.d., lamotrigine 200 mg b.i.d. Allergies: None code status: Full code ROS: Constitutional: Denies weight loss, fever and chills. HEENT: Denies changes in vision and hearing. Respiratory: Denies shortness of breath and cough Cardiovascular: Denies chest discomfort or palpitations GI: Constipation, rectal bleeding, rectal prolapse : Denies dysuria and urinary frequency. Musculoskeletal: Denies myalgias and joint pain Skin: Denies rash and pruritus. Neurological: Denies dizziness, headache, vision or hearing problems 04/23/2025: She is s/p perineal rectosigmoidectomy, no new complaints. Continue monitoring and managing. 04/24/2025: Surgery cleared for discharge. She complains of 8 episodes of diarrhea, described as watery with solid stools, no blood seen. 04/24/2025: Patient had 8-10 episodes of diarrhea yesterday, since yesterday morning she complains of obstipation. KUB shows large stool burden; started on GoLYTELY. 04/25/2025: Patient was seen at bedside today. Patient continues to have bowel movements, today she complained of watery diarrhea. Her abdominal pain has now subsided with bowel movements. Her potassium is running low, we will continue monitoring and managing her electrolyte. Objective vital signs Vital Sign Date Time Temp Pulse Resp B/P (MAP) Pulse Ox O2 Delivery O2 Flow Rate FiO2 04/26/25 12:55 97.7 69 18 118/81 (93) 96 97.7 04/26/25 08:00 Room Air* 0 21 Total Intake and Output 04/25/25 04/25/25 04/26/25 15:00 23:00 07:00 Intake Total 1350 ml 1020 ml Balance 1350 ml 1020 ml medications Current Medications Medications Dose Ordered Sig/Sharri Route Start Time Stop Time Status Last Admin Dose Admin Ondansetron HCl 4 mg Q4HP PRN IV 04/21/25 03:15 Quetiapine Fumarate 200 mg Q8HR PO 04/21/25 06:00 04/25/25 21:57 200 MG Lamotrigine 200 mg Q12HR PO 04/21/25 10:00 04/26/25 10:14 200 MG Pantoprazole Sodium 40 mg DAILY IV 04/22/25 10:00 04/23/25 08:45 40 MG Piperacillin Sod/ Tazobactam Sod 100 ml @ 25 mls/hr Q8HR IV 04/22/25 14:00 04/23/25 05:37 25 MLS/HR Enteral Nutritional Formula 240 ml QID PO 04/24/25 18:00 04/26/25 12:22 240 ML Docusate Sodium 100 mg BID PO 04/25/25 10:00 04/26/25 10:13 100 MG Acetaminophen 650 mg Q4HP PRN PO 04/25/25 10:00 04/26/25 10:13 650 MG Sodium Phosphate 1 tab TIDWM PO 04/25/25 12:00 04/26/25 12:49 1 TAB Examination General: Patient alert and oriented in person, place and time. Patient following commands. HEENT: Normocephalic, atraumatic, moist mucous membranes Respiratory/pulmonary: Clear lungs bilaterally, vesicular murmurs present in almost all lung avila, no associated crackles or wheezes. Cardiovascular: Normal heart sounds S1 and S2 with no associated murmurs Abdomen: Abdomen is soft today, no masses palpated. Extremities: There is no peripheral edema present at the lower extremities. Peripheral Pulses: 3+ Radial (R). 3+ Radial (L). 3+ Dorsalis pedis (R). 3+ Dorsalis pedis(L) Skin: No rashes or pruritus, there is no sacral edema present at this time. Neurological: Intact cranial nerves with no focal neurologic deficits laboratory and microbiology Laboratory Tests 04/26/25 14:44 04/26/25 05:23 Test 04/26/25 05:23 Range/Units Serum Glucose 81 74-106 mg/dL Problem List/Assessment/Plan Problem List/Assessment/Plan Rectal prolapse s/p perineal rectosigmoidectomy Hematochezia due to above Stercoral colitis with colonic obstruction Hyponatremia, resolved Obstipation Mild to moderate protein energy malnutrition Electrolyte abnormalities- hypophosphatemia, hypokalemia Supportive management with hydromorphone, Zofran IV NS maintenance IV Protonix [address] abdomen and pelvis without contrast , shows Marked fecal retention with inflammatory changes in the rectum compatible with stercoral colitis with colonic obstruction. lactulose 30 mL p.o. once Surgery on board, O/P follow up on 05/01. S/p perineal rectosigmoidectomy day 3. Wash surgical site TID. KUB today shows large stool burden. Patient started on GoLYTELY Patient's potassium is low, continue supplementing and monitoring. Normocytic normochromic anemia Reactive thrombocytosis Vitamin B12 547, folic acid 8.2 2 Iron 15, TIBC 186, percent saturation 8.1 Iron sucrose complex IV daily for 5 days Bipolar disorder, stable Quetiapine 200 mg p.o. Q 8 Lamotrigine 200 mg p.o. q.12 Fibromyalgia Supportive management with with therapy Right breast implant rupture Incidental finding Outpatient follow up DIET: clear liquid diet DVT PROPHYLAXIS: Lovenox GI PROPHYLAXIS: Held due to active rectal bleed CODE STATUS: Goals of care discussed with patient at bedside for more than 17 minutes. Full code DISPOSITION: Med/surge Plan discussed with: Patient, Other (Nurses) My Orders My Orders Orders - SANDRA HUNTER RESIDENT Procedure Category Date Status Time Potassium Er Tablet PHA 04/26/25 In Process (Klor-Con Tablet) 16:45 Potassium LAB 04/26/25 Logged 18:00 Magnesium LAB 04/26/25 Logged 16:32 Complete Blood Count LAB 04/27/25 Verified 04:00 Basic Metabolic Panel LAB 04/27/25 Verified 04:00 Dietary Evaluation Review Comments: 1) Initiate Ensure Clear qd 2) Advance to soft diet when medically feasible 3) Encourage optimal PO intake 4) Continue to monitor I&O, labs, and skin integrity Expected Outcomes/Goals: 1) appetite and labs to improve 2) diet to advance 3) f/u in 3-5 days Date of Service: Apr 26, 2025 Billing Provider: VALENTIN REBOLLEDO MD Common Visit Codes: [id number] INP/OBS CARE(MOD) SANDRA HUNTER RESIDENT Apr 26, 2025 16:47 VALENTIN REBOLLEDO MD Apr 30, 2025 18:23
[2025-04-26] MEDS: POTASSIUM CHL 20 Meq TABLET PO ONE (17:35)
[2025-04-26 20:00] VITALS: PULSE 84; RESP 17; O2SAT 98
[2025-04-26 21:00] VITALS: BP 119/80; PULSE 84; RESP 17; TEMP 97.4; O2SAT 98
[2025-04-27 05:00] VITALS: BP 131/88; PULSE 81; RESP 17; TEMP 98; O2SAT 98
[2025-04-27] MEDS: POTASSIUM EFFERVESENT TAB 25 MEQ PO ONE (06:48)
[2025-04-27 07:09] LABS: Nucleated Red Blood Cells % 0.0 %
[2025-04-27 07:11] LABS: Hematocrit 31.6 % (36.0-46.0); Hemoglobin 11.2 g/dL (12.2-16.2); Mean Corpuscular Hemoglobin 29.5 pg (28.0-32.0); Mean Corpuscular Volume 83.7 fL (80.0-100.0)
[2025-04-27 07:17] LABS: Chloride 104 mmol/L (98-107); Potassium 3.5 mmol/L (3.5-5.1); Sodium 139 mmol/L (136-145)
[2025-04-27 07:18] LABS: Anion Gap 10 (5-15); Carbon Dioxide 25 mmol/L (20-31)
[2025-04-27 07:19] LABS: Calcium 9.4 mg/dL (8.7-10.4)
[2025-04-27 07:24] LABS: BUN/Creatinine Ratio 6.5 (10.0-20.0); Glucose 94 mg/dL (74-106)
[2025-04-27 07:25] LABS: Blood Urea Nitrogen 5 mg/dL (9-23)
[2025-04-27] MEDS: POTASSIUM CHL 20 Meq TABLET PO ONE (07:58)
[2025-04-27 08:00] VITALS: PULSE 90; RESP 20; O2SAT 98
[2025-04-27 08:54] VITALS: BP 121/90; PULSE 90; RESP 20; TEMP 97.7; O2SAT 98
--- NOTE | 2025-04-27 08:55 | DVHDSRES ---
Discharge Summary Date of Admission Resident Creating Document: SANDRA HUNTER RESIDENT Apr 21, 2025 at 03:01 Date of Discharge: Apr 26, 2025 Labs/Diagnostic Data: Laboratory Results Test 04/27/25 06:46 04/27/25 06:45 04/26/25 14:44 04/26/25 05:23 Sodium Level 139 mmol/L (136-145) Potassium Level 3.5 mmol/L (3.5-5.1) Chloride Level 104 mmol/L (98-107) Carbon Dioxide Level 25 mmol/L (20-31) Anion Gap 10 (5-15) Blood Urea Nitrogen 5 mg/dL (9-23) Creatinine 0.77 mg/dL (0.550-1.02) Glomerular Filtration Rate Calc 87 mL/min (>90) BUN/Creatinine Ratio 6.5 (10.0-20.0) Serum Glucose 94 mg/dL (74-106) Calcium Level 9.4 mg/dL (8.7-10.4) White Blood Count 5.5 10^3/uL (4.4-10.8) Red Blood Count 3.78 10^6/uL (4.0-5.20) Hemoglobin 11.2 g/dL (12.2-16.2) Hematocrit 31.6 % (36.0-46.0) Mean Corpuscular Volume 83.7 fL (80.0-100.0) Mean Corpuscular Hemoglobin 29.5 pg (28.0-32.0) Mean Corpuscular Hemoglobin Concent 35.3 g/dL (32.0-36.0) Red Cell Distribution Width 14.7 % (11.8-14.3) Platelet Count 544 10^3/uL (140-450) Mean Platelet Volume 6.3 fL (6.9-10.8) Neutrophils (%) (Auto) 61.5 % (37.0-80.0) Lymphocytes (%) (Auto) 24.1 % (10.0-50.0) Monocytes (%) (Auto) 14.3 % (0.0-12.0) Eosinophils (%) (Auto) 0.0 % (0.0-7.0) Basophils (%) (Auto) 0.1 % (0.0-2.0) Neutrophils # (Auto) 3.4 10 ^3/uL (1.6-8.6) Lymphocytes # (Auto) 1.3 10 ^3/uL (0.4-5.4) Monocytes # (Auto) 0.8 10 ^3/uL (0-1.3) Eosinophils # (Auto) 0 10 ^3/uL (0-0.8) Basophils # (Auto) 0 10 ^3/uL (0-0.2) Nucleated Red Blood Cells 0.0 % Magnesium Level 2.0 mg/dL (1.6-2.6) Phosphorus Level 2.5 mg/dL (2.4-5.1) Test 04/22/25 14:20 04/22/25 06:35 04/21/25 08:27 04/21/25 02:14 Lactic Acid Level 0.7 mmol/L (0.4-2.0) Serum Osmolality 284 mOsm/kg (278-298) Lactate Dehydrogenase 214 U/L (120-246) Hemoglobin A1c 5.5 % A1C (<5.7) Prothrombin Time 11.8 sec (9.3-11.8) Prothrombin Time INR 1.13 (0.9-1.15) Activated Partial Thromboplast Time 40.4 SEC (24.5-34.5) Iron Level 15 ug/dL (50-170) Total Iron Binding Capacity 186 ug/dL (250-425) Percent Iron Saturation 8.1 % (15-50) Ferritin 183.2 ng/mL (10-291) Total Bilirubin 0.5 mg/dL (0.2-1.0) Direct Bilirubin 0.3 mg/dL (<0.3) Aspartate Amino Transferase (AST) 20 U/L (13-40) Alanine Aminotransferase (ALT) 14 U/L (7-40) Alkaline Phosphatase 131 U/L (46-116) Total Protein 5.6 g/dL (5.7-8.2) Albumin 3.0 g/dL (3.2-4.8) Vitamin B12 Level 547 pg/mL (211-911) Folic Acid 8.22 ng/mL (>5.38) Other Laboratory Tests 04/27/25 06:46 04/27/25 06:45 Brief Hx & Hospital Course: History on arrival: This is a 64-year-old female with past medical history of rectal prolapse which she has been able to reduce for 20 years, fibromyalgia not on any medication, bipolar disorder stable since 2005, hysterectomy, breast augmentation, who came from [facility] on 04/20/25 with complaints of being unable to push back her rectal prolapse, rectal bleeding and constipation for 19 days on arrival. As per the patient, she went to [facility] 2 days ago via ambulance when she saw blood-tinged fluid from the prolapse site and she was unable to reduce the prolapse back in. In the hospital they attempted to reduce it twice in the past 2 days and she was only able to hold it for a while, but she was only able to hold it in for 30 minutes before it came out again. She says the bleeding increased after the doctors there tried to reduce the prolapse each time. She reports for the past 19 days she has taken various stool softeners and Fleet enema which has not helped passed gas or stool. She is able to tolerate a diet but eats less knowing it will cause her more abdominal pain which she has started to feel as she is unable to pass flatus or stool. Brief hospital stay: Initial labs show electrolyte abnormalities. CT abdomen shows marked fecal retention with inflammatory changes in the rectum compatible with stercoral colitis with colonic obstruction, right breast implant rupture likely. Patient was started on Supportive management with hydromorphone, Zofran, IV fluids, IV Protonix. Surgery on board, recommended perineal rectosigmoidectomy. Patient underwent perineal rectosigmoidectomy on 04/22/2025. Patient continued to complain of obstipation. KUB was completed, showed large stool burden. Patient started on GoLYTELY. Patient is currently having bowel movements and her abdomen is soft on palpation now. Conditions treated during stay: Rectal prolapse s/p perineal rectosigmoidectomy Hematochezia due to above Stercoral colitis with colonic obstruction Hyponatremia, resolved Obstipation Mild to moderate protein energy malnutrition Electrolyte abnormalities- hypophosphatemia, hypokalemia, resolved Normocytic normochromic anemia, unspecified Reactive thrombocytosis Bipolar disorder, stable Fibromyalgia Right breast implant rupture Plan: Continue Protonix p.o. daily Use Tylenol p.o. as needed for pain management. Discussed avoiding ibuprofen, [place] in context of recent surgery to avoid any bleeding risk and constipation. Please follow with PCP in 1 week Please follow with surgery in outpatient clinic in 7-10 days on 05/01/2025 Operations or Procedures Report Details Date: 04/22/25 Preop Diagnosis: 1. Rectal prolapse Postop Diagnosis: 1. Same Surgeon: Riaz Sher MD Encyclopedia Research Worker: None Anesthesiologist: Gerry Zhu CRNA Anesthesia: Local Drains: None Consent: The surgery and its risks including but not limited to infection, bleeding requiring possible blood transfusion with the risk of hepatitis or HIV infection, possible perioperative MD or stroke, possible anal or rectal stricture requiring further intervention in the future such as dilation were explained to the patient. All questions were answered to her satisfaction. She expressed verbal understanding and wished to proceed with the surgery. Complications: None Estimated Blood Loss: 50 mL Fluids: 1 L Name of Procedure Performed Peroneal rectosigmoidectomy Procedure Details Procedure Details: After induction of general anesthesia, patient was placed in the high lithotomy position anal region was prepped and draped in standard surgical fashion. Approximately 25 mL of 0.5% Marcaine with epinephrine was used as a local anesthesia around the anal region incision was made proximally 2 cm away from the dentate line in the rectal mucosa and this was fully divided circumferentially. This released the the rectum from the anal region. During the dissection a small opening was made in the peritoneum. The peritoneum was then suture closed using 0 Vicryl sutures in locked fashion. The rectosigmoid colon was also divided proximally near the level of the anal verge. This was removed and sent off to pathology. Interrupted 2-0 Vicryl sutures were placed in interrupted fashion circumferentially to reapproximate the distal sigmoid wall to the distal mucosal wall in full-thickness fashion. There was ample opening without narrowing big enough to fit 3-0 my fingers in easily. There was no active bleeding at the site the mucosa appeared viable. A 28 Welsh Malecot tube wrapped in 4 x 4 gauze dressing soaked in lidocaine jelly was then inserted into the anal canal for additional hemostasis. Surgical site was cleaned and dried. Sponge, needle, instrument count at the end of the case were reported to be correct by the nursing staff. The patient tolerated procedure well and was awake, extubated and transferred to recovery in stable condition. Specimen: Rectosigmoid colon Condition Stable Date: 04/25/2025 07:19 AM Examination: XY KUB ABDOMEN SINGLE VIEW History: Abdominal pain Rule out obstruction Comparison: None TECHNIQUE: Frontal views of the abdomen was obtained. FINDINGS/IMPRESSION: Large stool burden. Lung bases and upper abdomen are collimated from field of view. No acute osseous abnormality. --------- CHEST RADIOGRAPH Indication: sob Technique: Single frontal view of the chest was obtained COMPARISON: CHEST TWO VIEWS on DOS: 09/05/19 FINDINGS: Lines and Tubes: None Lungs: Clear. Soft tissue density shadow and breast prosthesis overlies the right middle lung zone. Pleura: No effusion. No pneumothorax. Cardiomediastinal contours: Unremarkable Bones: Unremarkable IMPRESSION: 1. No radiographic evidence of acute cardiopulmonary abnormality. Exam: CT CT AB PEL WO CON-NO ORAL OR IV History: eval for obstruction Comparison Study: None Technique: Multidetector spiral CT of the abdomen and pelvis was performed from lung bases to pubic symphysis. Imaging was performed without intravenous contrast. Coronal and sagittal multiplanar reformats were obtained from the axial data set by the technologist. Radiation Dose : 1. Abdomen/Pelvis: CTDIvol 11.17 mGy, DLP 717.4 mGy*cm. Findings: Evaluation of vasculature and solid organs is limited due to lack of intravenous contrast use. Lung Bases: Lung bases are clear. Visualized portions of the heart and pericardium are unremarkable. Liver: The liver is normal in size. No focal lesions. Gallbladder and Biliary Tree: The gallbladder is unremarkable No intrahepatic or extrahepatic biliary ductal dilatation. Spleen: Unremarkable Pancreas: The pancreas is grossly unremarkable. Adrenal Glands: Unremarkable Kidneys: Kidneys are unremarkable without calculi or hydronephrosis. GI tract: The stomach is grossly normal in appearance. No evidence of small bowel wall thickening or abnormal dilatation to suggest bowel obstruction. There is marked distention of the colon with stool. For example the cecum measures 10.3 cm. Marked fecal retention in the rectum measuring 7.3 cm with mucosal thickening of the rectum, pericolonic fluid and fat stranding. There is upstream dilatation of the entire colon. The appendix is not visualized. Peritoneum/mesentery/retroperitoneum. No evidence of free intraperitoneal air. No ascites. No evidence of suspicious lymphadenopathy. Abdominal Wall: Bilateral calcified breast implants with suspected rupture of the right implant. Vasculature: The visualized abdominal aorta is normal in size and caliber. Evaluation of abdominal and pelvic vessels is limited due to lack of intravenous contrast. Urinary Bladder: Grossly unremarkable for degree of distention. Pelvic Organs: Unremarkable Musculoskeletal: No aggressive focal bony lesions, acute fractures or dislocation. IMPRESSION: 1. Marked fecal retention with inflammatory changes in the rectum compatible with stercoral colitis with colonic obstruction. 2. Suspect possible right breast implant rupture. Correlation with dedicated breast imaging recommended if clinically warranted. Condition at Discharge: Stable Final Diagnosis/Problems List Rectal prolapse s/p perineal rectosigmoidectomy Hematochezia due to above Stercoral colitis with colonic obstruction Hyponatremia, resolved Obstipation Mild to moderate protein energy malnutrition Electrolyte abnormalities- hypophosphatemia, hypokalemia, resolved Normocytic normochromic anemia Reactive thrombocytosis Bipolar disorder, stable Fibromyalgia Right breast implant rupture Discharge Disposition: Home Discharge Instruct/Medications Diet: Regular Activity: No Restrictions, As Tolerated Follow Up/Referral: Please follow with PCP in 1 week Please follow with surgery in outpatient clinic in 7-10 days on 05/01/2025 Medications: As per EHR New Medications: Pantoprazole Sodium Sesquihydr (Protonix) 40 Mg Tab 40 MG PO DAILY for 30 Days, #30 TAB Acetaminophen (Acetaminophen) 325 Mg Tab 650 MG PO Q4HP PRN for 14 Days, #140 TAB Scheduled Pantoprazole Sodium Sesquihydr (Protonix), 40 MG PO DAILY Scheduled PRN Acetaminophen (Acetaminophen), 650 MG PO Q4HP PRN Discharge Statement: "Patient was advised to return to the ER or call 911 if any headaches, dizziness, shortness of breath, chest pain, abdominal pain, bleeding, fevers, or worsening of medical condition. Patient was counseled about treatment plan, medications, possible side effects, patientverbalized understanding. All questions were answered to the best of my ability. This discharge took greater then 30 minutes in planning, reviewing documentation, counseling the patient, and discussing with other team members." ASSESSMENT ASSESSMENT Assessment Rectal prolapse s/p perineal rectosigmoidectomy Hematochezia due to above Stercoral colitis with colonic obstruction Hyponatremia, resolved Obstipation Mild to moderate protein energy malnutrition Electrolyte abnormalities- hypophosphatemia, hypokalemia, resolved Normocytic normochromic anemia Reactive thrombocytosis Bipolar disorder, stable Fibromyalgia Right breast implant rupture Date of Service: Apr 27, 2025 Billing Provider: VALENTIN REBOLLEDO MD Common Visit Codes: 91949-XKD/OBS DISCH DAY >30min SANDRA HUNTER RESIDENT Apr 27, 2025 08:55 VALENTIN REBOLLEDO MD Apr 30, 2025 18:23
== END 2025-04-27 11:36 | disposition home or self-care (01) | DRG 231 ==
LOC: ER 00:31 → EDBD 00:31 → OVERFLOW 03:01 → EAST 17:25
PROVIDERS: ADMIT Internal Medicine Geriatric Medicine; ATTEND Internal Medicine Geriatric Medicine
PROC: 0DBP0ZZ Excision of Rectum, Open Approach (ICD-10-PCS; 2025-04-22)
PROC: 0DBN0ZZ Excision of Sigmoid Colon, Open Approach (ICD-10-PCS; principal; 2025-04-22 09:18)
DX: K62.3 Rectal prolapse (principal); N17.0 Acute kidney failure with tubular necrosis; E44.0 Moderate protein-calorie malnutrition; K56.609 Unspecified intestinal obstruction, unspecified as to partial versus complete obstruction; E83.39 Other disorders of phosphorus metabolism; E87.1 Hypo-osmolality and hyponatremia; D62 Acute posthemorrhagic anemia; F31.9 Bipolar disorder, unspecified; D75.838 Other thrombocytosis; K92.1 Melena; N65.0 Deformity of reconstructed breast; K52.89 Other specified noninfective gastroenteritis and colitis; K59.00 Constipation, unspecified; M79.7 Fibromyalgia; E87.6 Hypokalemia; Z90.710 Acquired absence of both cervix and uterus; Z79.899 Other long term (current) drug therapy; Z68.26 Body mass index [BMI] 26.0-26.9, adult
CPT/HCPCS: 36415; 71045; 74018; 74176; 80048; 80076; 82607; 82728; 82746; 83036; 83540; 83550; 83605; 83615; 83735; 83930; 84100; 84132; 85025; 85610; 85730; 86850; 86900; 86901; 96365; 96375; G0378; J0131; J0690; J2003; J2250; J2405; J2470; J2543; J2704; J3490